=== PATIENT | female | born 1955 | race Two or more races ===

== ENCOUNTER 2022-07-04 08:52 | Inpatient (IN) | payer MEDICARE, MEDICAID ==
[~2022-07-04] VITALS: Ht 170.2 cm; Wt 59.2 kg
[2022-07-04] MEDS ORDERED: CLOP75TA70 PO (09:55)
[2022-07-04] MEDS ORDERED: ALEN70TA74 PO (09:55)
[2022-07-04] MEDS ORDERED: DIVA500T13 PO (09:57)
[2022-07-04] MEDS ORDERED: OLAN2.5T38 PO (09:57)
[2022-07-04 10:23] LABS: Albumin 3.2 g/dL (3.4-5.0); Calcium 8.5 mg/dL (8.5-10.1)
[2022-07-04 10:27] LABS: BUN/Creatinine Ratio 25.3; Basophils # (auto) 0 10 ^3/uL (0-0.2); Basophils % (auto) 0.5 % (0.0-2.0); Bilirubin, Total 0.3 mg/dL (0.2-1.0); Eosinophils # (auto) 0 10 ^3/uL (0-0.8); Eosinophils % (auto) 0.4 % (0.0-7.0); Hematocrit 38.3 % (36.0-46.0); Hemoglobin 12.3 g/dL (12.2-16.2); Lymphocytes # (auto) 0.9 10 ^3/uL (0.4-5.4); Lymphocytes % (auto) 18.4 % (10.0-50.0); Mean Corpuscular Hgb Conc. 32.2 g/dL (32.0-36.0); Mean Corpuscular Volume 93.2 fL (80.0-100.0); Monocytes # (auto) 0.4 10 ^3/uL (0-1.3); Monocytes % (auto) 7.7 % (0.0-12.0); Neutrophils # (auto) 3.7 10 ^3/uL (1.6-8.6); Nucleated Red Blood Cells % 0.1 %; Red Blood Cells 4.11 10^6/uL (4.0-5.20); Red Cell Distribution Width 14.8 % (11.8-14.3); Total Protein 5.9 g/dL (6.4-8.2); White Blood Cell 5.1 10^3/uL (4.4-10.8)
[2022-07-04] MEDS ORDERED: CHOL20002 PO (11:57)
[2022-07-04] MEDS ORDERED: TRAZ100T3 PO (11:57)
[2022-07-04] MEDS ORDERED: ASPI-325 PO (11:57)
[2022-07-04] MEDS ORDERED: ONDANSETRON HCL 4 MG/2 ML VIAL IV PRN (12:15)
[2022-07-04] MEDS ORDERED: TEMAZEPAM 15 MG CAP PO PRN (12:15)
[2022-07-04] MEDS ORDERED: MORPHINE SULFATE INJ 2 MG/ml SYRG IV PRN ×2 (12:15)
[2022-07-04] MEDS ORDERED: NITROGLYCERIN 0.4 MG SL TAB SL PRN (12:15)
[2022-07-04] MEDS ORDERED: DOCUSATE SOD 100 MG CAP PO PRN (12:15)
[2022-07-04] MEDS ORDERED: HYDROcodone-ACET 5/325MG TAB PO PRN (12:15)
[2022-07-04] MEDS ORDERED: ATROPINE SULF 1 MG/10ml SYR IV ONE (16:15)
[2022-07-04] MEDS ORDERED: ATROPINE SULFATE 1 MG/1 ML VIAL ONE (16:26)
[2022-07-05 05:33] LABS: Basophils # (auto) 0 10 ^3/uL (0-0.2); Basophils % (auto) 0.7 % (0.0-2.0); Eosinophils # (auto) 0 10 ^3/uL (0-0.8); Eosinophils % (auto) 0.6 % (0.0-7.0); Hematocrit 38.6 % (36.0-46.0); Hemoglobin 12.8 g/dL (12.2-16.2); Lymphocytes # (auto) 2.1 10 ^3/uL (0.4-5.4); Mean Corpuscular Hemoglobin 30.7 pg (28.0-32.0); Mean Corpuscular Hgb Conc. 33.2 g/dL (32.0-36.0); Mean Corpuscular Volume 92.6 fL (80.0-100.0); Monocytes # (auto) 0.4 10 ^3/uL (0-1.3); Monocytes % (auto) 8.3 % (0.0-12.0); Neutrophils # (auto) 2.8 10 ^3/uL (1.6-8.6); Neutrophils % (auto) 52.4 % (37.0-80.0); Nucleated Red Blood Cells % 0.1 %; Red Blood Cells 4.17 10^6/uL (4.0-5.20); Red Cell Distribution Width 14.7 % (11.8-14.3); White Blood Cell 5.4 10^3/uL (4.4-10.8)
[2022-07-05 05:46] LABS: Calcium 8.6 mg/dL (8.5-10.1); Magnesium 2.3 mg/dL (1.6-2.6); Potassium 4.4 mmol/L (3.5-5.1)
[2022-07-05 05:51] LABS: BUN/Creatinine Ratio 27.4; Bilirubin, Total 0.3 mg/dL (0.2-1.0); Total Protein 6.2 g/dL (6.4-8.2)
[2022-07-05] MEDS ORDERED: hydrALAZINE HCL 20 MG/ML VL IV PRN (06:15)
[2022-07-05] MEDS: ADENOSINE 46 MG in GIVE UN-DILUTED 0 ML IV STA ×2 (11:35→12:49)
[2022-07-05 13:00] VITALS: BP 155/70
[2022-07-05] MEDS ORDERED: FUROSEMIDE 20 MG/2 ML VIAL IV ONE (13:15)
[2022-07-05] MEDS ORDERED: LOSARTAN POTASSIUM 50 MG TAB PO ONE (13:15)
[2022-07-05] MEDS ORDERED: HCTZ 25 MG TAB PO ONE (13:15)
[2022-07-05 15:43] LABS: Urine Bacteria NONE SEEN /hpf (None Seen); Urine Blood Negative /uL (Negative); Urine Hyaline Cast FEW /lpf (0 - 2); Urine Specific Gravity 1.006 (1.001-1.035); Urine WBC 8 /hpf (0 - 5)
[2022-07-05 17:00] VITALS: BP 149/64
[2022-07-05] MEDS ORDERED: LORazepam 2MG/ML-1ML VIAL IV PRN (21:30)
[2022-07-05 21:39] LABS: Cholesterol 155 mg/dL (< 200); Triglycerides 69 mg/dL (< 150)
[2022-07-05 21:41] LABS: HDL Cholesterol 64 mg/dL (40-59); LDL Cholesterol 85 mg/dL (< 100)
[2022-07-05 22:00] VITALS: BP 121/58
[2022-07-05] MEDS: traZODone HCL 50 MG TAB PO SCH (22:18)
[2022-07-06 05:00] VITALS: BP 142/65
[2022-07-06] MEDS: FUROSEMIDE 20 MG/2 ML VIAL IV SCH (09:07)
[2022-07-06] MEDS: OLANZapine 5 MG TAB PO SCH (09:09)
[2022-07-06] MEDS: ASPirin 81 mg TAB PO SCH (09:11)
[2022-07-06] MEDS: HCTZ 25 MG TAB PO SCH (09:11)
[2022-07-06] MEDS: LOSARTAN POTASSIUM 50 MG TAB PO SCH (09:12)
[2022-07-06 13:00] VITALS: BP 123/75
[2022-07-06 17:00] VITALS: BP 114/61
[2022-07-06] MEDS: traZODone HCL 50 MG TAB PO SCH (21:27)
[2022-07-06 22:00] VITALS: BP 100/49
[2022-07-07 05:00] VITALS: BP 104/59
[2022-07-07 09:00] VITALS: BP 134/62
[2022-07-07] MEDS: OLANZapine 5 MG TAB PO SCH (09:26)
[2022-07-07] MEDS: ASPirin 81 mg TAB PO SCH (09:26)
[2022-07-07] MEDS: HCTZ 25 MG TAB PO SCH (09:27)
[2022-07-07] MEDS: LOSARTAN POTASSIUM 50 MG TAB PO SCH (09:28)
[2022-07-07] MEDS: FUROSEMIDE 20 MG/2 ML VIAL IV SCH (10:00)
[2022-07-07] MEDS ORDERED: LOSA-69 PO (10:52)
[2022-07-07] MEDS ORDERED: HYDR25TA5 PO (10:52)
[2022-07-07] MEDS ORDERED: ATOR20TA PO (10:53)
[2022-07-07 12:43] VITALS: BP 134/62
[2022-07-07 13:00] VITALS: BP 132/67
== END 2022-07-07 15:34 | disposition home or self-care (01) | DRG 201 ==
LOC: ER 08:52 → EDBD 08:52 → TELE 12:18 → TELE-CENTR 07-05 13:40
PROVIDERS: ADMIT Internal Medicine; ATTEND Internal Medicine Nephrology
DX: R00.1 Bradycardia, unspecified (principal); I11.0 Hypertensive heart disease with heart failure; I95.9 Hypotension, unspecified; I50.22 Chronic systolic (congestive) heart failure; F20.9 Schizophrenia, unspecified; F31.9 Bipolar disorder, unspecified; F41.0 Panic disorder [episodic paroxysmal anxiety]; Z20.822 Contact with and (suspected) exposure to COVID-19; Z86.73 Personal history of transient ischemic attack (TIA), and cerebral infarction without residual deficits; Z79.02 Long term (current) use of antithrombotics/antiplatelets; Z79.82 Long term (current) use of aspirin; Z79.899 Other long term (current) drug therapy; Z82.49 Family history of ischemic heart disease and other diseases of the circulatory system; Z83.3 Family history of diabetes mellitus
CPT/HCPCS: 36415; 70551; 71045; 76705; 78452; 80053; 80061; 81001; 82962; 83036; 83735; 83880; 84439; 84443; 84484; 85025; 93005; 93017; 93306; 95819; G0378; J0153; J0461

== ENCOUNTER 2023-04-23 06:47 | Inpatient (IN) | payer MEDICARE, MEDICAID ==
[~2023-04-23] VITALS: Ht 170.2 cm; Wt 70.0 kg
[~2023-04-23 06:47] MED LIST: ALEN70TA74 PO; ASPI-325 PO; ATOR20TA PO; CHOL20002 PO; CLOP75TA70 PO; DIVA500T13 PO; HYDR25TA5 PO; LOSA50TA46 PO; OLAN2.5T38 PO; TRAZ-228 PO
[2023-04-23 07:32] LABS: Basophils # (auto) 0.1 10 ^3/uL (0-0.2); Basophils % (auto) 0.9 % (0.0-2.0); Eosinophils # (auto) 0 10 ^3/uL (0-0.8); Eosinophils % (auto) 0.2 % (0.0-7.0); Hematocrit 45.6 % (36.0-46.0); Hemoglobin 15.1 g/dL (12.2-16.2); Lymphocytes # (auto) 1.4 10 ^3/uL (0.4-5.4); Lymphocytes % (auto) 24.3 % (10.0-50.0); Mean Corpuscular Hemoglobin 31.1 pg (28.0-32.0); Mean Corpuscular Hgb Conc. 33.1 g/dL (32.0-36.0); Mean Corpuscular Volume 94.1 fL (80.0-100.0); Monocytes # (auto) 0.4 10 ^3/uL (0-1.3); Monocytes % (auto) 6.7 % (0.0-12.0); Neutrophils % (auto) 67.9 % (37.0-80.0); Nucleated Red Blood Cells % 0.1 %; Red Blood Cells 4.84 10^6/uL (4.0-5.20); Red Cell Distribution Width 14.3 % (11.8-14.3); White Blood Cell 5.8 10^3/uL (4.4-10.8)
[2023-04-23 07:47] LABS: INR 1.08 (0.9-1.15); Partial Thromboplastin Time 24.5 sec (24.6-33.4)
[2023-04-23 08:08] LABS: Albumin 2.9 g/dL (3.4-5.0); Anion Gap 8 (5-15); BUN/Creatinine Ratio 22.8 (10.0-20.0); Blood Urea Nitrogen 23 mg/dL (7-18); Calcium 8.6 mg/dL (8.5-10.1); Carbon Dioxide 26 mmol/L (21-32); Chloride 111 mmol/L (98-107); GFR African American 71 mL/min; GFR Non-African American 58 mL/min; Glucose 104 mg/dL (74-106); Potassium 3.4 mmol/L (3.5-5.1); Sodium 145 mmol/L (136-145)
[2023-04-23 08:10] LABS: Alanine Aminotransferase 94 U/L (13-56); Alkaline Phosphatase 54 U/L (45-117); Aspartate Aminotransferase 63 U/L (15-37); Bilirubin, Total 0.6 mg/dL (0.2-1.0); Total Protein 5.6 g/dL (6.4-8.2)
[2023-04-23 08:29] LABS: Urine Bacteria NONE SEEN /hpf (None Seen); Urine Blood Negative /uL (Negative); Urine Hyaline Cast FEW /lpf (0 - 2); Urine Specific Gravity 1.011 (1.001-1.035); Urine WBC <1 /hpf (0 - 5)
[2023-04-23] MEDS ORDERED: ENOXAPARIN SOD 80 MG/0.8ML SYRINGE SC ONE (08:45)
[2023-04-23] MEDS ORDERED: FUROSEMIDE 40 MG/4 ML VIAL IV ONE (09:30)
[2023-04-23] MEDS ORDERED: MORPHINE SULFATE INJ 2 MG/ml SYRG IV PRN (14:00)
[2023-04-23] MEDS ORDERED: NITROGLYCERIN 0.4 MG SL TAB SL PRN (14:00)
[2023-04-23] MEDS ORDERED: POTASSIUM EFFERVESENT TAB 25 MEQ PO ONE (14:00)
[2023-04-23] MEDS ORDERED: ALENDRONATE SODIUM 10 MG TAB PO SCH (14:00)
[2023-04-23] MEDS ORDERED: ACETAMINOPHEN 325 MG TAB PO PRN (14:00)
[2023-04-23] MEDS ORDERED: hydrALAZINE HCL 20 MG/ML VL IV PRN (14:00)
[2023-04-23] MEDS ORDERED: ALBUTEROL SULF 2.5 MG/0.5ML(0.5%) NEB SOLN NEB PRN (14:15)
[2023-04-23 17:51] VITALS: BP 136/47
[2023-04-23 18:00] VITALS: BP 136/47
[2023-04-23] MEDS ORDERED: METO25TA93 PO (18:20)
[2023-04-23] MEDS ORDERED: FUR20T PO (18:20)
[2023-04-23] MEDS ORDERED: FLUO20CA90 PO (18:20)
[2023-04-23] MEDS: FUROSEMIDE 40 MG/4 ML VIAL IV SCH (22:00)
[2023-04-24] VITALS (8 sets, daily range): BP systolic 114–144; BP diastolic 63–97
[2023-04-24 06:49] LABS: Basophils # (auto) 0 10 ^3/uL (0-0.2); Basophils % (auto) 0.6 % (0.0-2.0); Eosinophils # (auto) 0 10 ^3/uL (0-0.8); Eosinophils % (auto) 0.1 % (0.0-7.0); Hematocrit 44.9 % (36.0-46.0); Hemoglobin 15.1 g/dL (12.2-16.2); Lymphocytes # (auto) 1.4 10 ^3/uL (0.4-5.4); Lymphocytes % (auto) 22.7 % (10.0-50.0); Mean Corpuscular Hemoglobin 31.3 pg (28.0-32.0); Mean Corpuscular Hgb Conc. 33.7 g/dL (32.0-36.0); Mean Corpuscular Volume 92.7 fL (80.0-100.0); Monocytes # (auto) 0.5 10 ^3/uL (0-1.3); Monocytes % (auto) 8.5 % (0.0-12.0); Neutrophils # (auto) 4.1 10 ^3/uL (1.6-8.6); Neutrophils % (auto) 68.1 % (37.0-80.0); Nucleated Red Blood Cells % 0.2 %; Red Blood Cells 4.84 10^6/uL (4.0-5.20); Red Cell Distribution Width 14.2 % (11.8-14.3)
[2023-04-24 07:05] LABS: Albumin 2.8 g/dL (3.4-5.0); Calcium 8.4 mg/dL (8.5-10.1); Potassium 3.2 mmol/L (3.5-5.1)
[2023-04-24 07:09] LABS: Bilirubin, Total 0.7 mg/dL (0.2-1.0); Total Protein 5.5 g/dL (6.4-8.2)
[2023-04-24] MEDS: CLOPIDOGREL BISULFATE 75 MG TAB PO SCH (09:36)
[2023-04-24] MEDS: CHOLECALCIFEROL (VITD3) 2,000 UNIT CAP/TAB PO SCH (09:36)
[2023-04-24] MEDS: ENOXAPARIN SOD 40 MG/0.4 ML SYRINGE SC SCH (09:37)
[2023-04-24] MEDS: ATORVASTATIN 20 MG TAB PO SCH (09:37)
[2023-04-24] MEDS: ASPirin 81 mg TAB PO SCH (09:37)
[2023-04-24] MEDS: FUROSEMIDE 40 MG/4 ML VIAL IV SCH ×2 (09:38→21:56)
[2023-04-24] MEDS: LOSARTAN POTASSIUM 50 MG TAB PO SCH (09:39)
[2023-04-24] MEDS ORDERED: OLANZapine 5 MG TAB PO SCH (10:00)
[2023-04-24] MEDS ORDERED: POTASSIUM CHL 20 Meq TABLET PO ONE (11:15)
[2023-04-24 13:33] LABS: Hepatitis A Ab IgM Negative; Hepatitis B Core IgM Negative
[2023-04-24 13:36] LABS: Hepatitis C Antibody Negative (Negative)
[2023-04-24] MEDS: POTASSIUM CHL 20 Meq TABLET PO SCH (21:57)
[2023-04-24] MEDS ORDERED: traZODone HCL 50 MG TAB PO SCH (22:00)
[2023-04-25 05:00] VITALS: BP 136/92
[2023-04-25 06:35] LABS: BUN/Creatinine Ratio 22.6 (10.0-20.0); Calcium 8.5 mg/dL (8.5-10.1); Potassium 3.7 mmol/L (3.5-5.1)
[2023-04-25 09:00] VITALS: BP 133/84
[2023-04-25] MEDS: ENOXAPARIN SOD 40 MG/0.4 ML SYRINGE SC SCH (09:09)
[2023-04-25] MEDS: OLANZapine 5 MG TAB PO SCH (09:10)
[2023-04-25] MEDS: CHOLECALCIFEROL (VITD3) 2,000 UNIT CAP/TAB PO SCH (09:11)
[2023-04-25] MEDS: POTASSIUM CHL 20 Meq TABLET PO SCH (09:11)
[2023-04-25] MEDS: ASPirin 81 mg TAB PO SCH (09:11)
[2023-04-25] MEDS: CLOPIDOGREL BISULFATE 75 MG TAB PO SCH (09:11)
[2023-04-25] MEDS: ATORVASTATIN 20 MG TAB PO SCH (09:11)
[2023-04-25] MEDS: LOSARTAN POTASSIUM 50 MG TAB PO SCH (09:12)
[2023-04-25] MEDS: FLUoxetine HCL 20 MG CAP PO SCH (09:12)
[2023-04-25] MEDS: FUROSEMIDE 40 MG/4 ML VIAL IV SCH (09:13)
[2023-04-25 09:50] VITALS: BP 133/84
[2023-04-25 13:00] VITALS: BP 102/61
[2023-04-25 16:39] VITALS: BP 90/59
[2023-04-25 22:00] VITALS: BP 122/55
[2023-04-26] VITALS (9 sets, daily range): BP systolic 112–143; BP diastolic 63–99
[2023-04-26 06:03] LABS: Basophils # (auto) 0 10 ^3/uL (0-0.2); Basophils % (auto) 0.5 % (0.0-2.0); Eosinophils # (auto) 0 10 ^3/uL (0-0.8); Eosinophils % (auto) 0.5 % (0.0-7.0); Hematocrit 43.2 % (36.0-46.0); Hemoglobin 14.6 g/dL (12.2-16.2); Lymphocytes # (auto) 1.6 10 ^3/uL (0.4-5.4); Lymphocytes % (auto) 30.5 % (10.0-50.0); Mean Corpuscular Hemoglobin 31.3 pg (28.0-32.0); Mean Corpuscular Hgb Conc. 33.7 g/dL (32.0-36.0); Mean Corpuscular Volume 92.9 fL (80.0-100.0); Monocytes # (auto) 0.6 10 ^3/uL (0-1.3); Monocytes % (auto) 11.6 % (0.0-12.0); Neutrophils # (auto) 2.9 10 ^3/uL (1.6-8.6); Neutrophils % (auto) 56.9 % (37.0-80.0); Nucleated Red Blood Cells % 0.2 %; Red Blood Cells 4.65 10^6/uL (4.0-5.20); White Blood Cell 5.1 10^3/uL (4.4-10.8)
[2023-04-26 06:23] LABS: Albumin 2.3 g/dL (3.4-5.0); Calcium 8.2 mg/dL (8.5-10.1); Potassium 3.7 mmol/L (3.5-5.1)
[2023-04-26 06:26] LABS: Bilirubin, Total 0.4 mg/dL (0.2-1.0); Total Protein 5.3 g/dL (6.4-8.2)
[2023-04-26] MEDS: ENOXAPARIN SOD 40 MG/0.4 ML SYRINGE SC SCH (10:00)
[2023-04-26] MEDS: FUROSEMIDE 40 MG/4 ML VIAL IV SCH (10:00)
[2023-04-26] MEDS: POTASSIUM CHL 20 Meq TABLET PO SCH (10:57)
[2023-04-26] MEDS: CLOPIDOGREL BISULFATE 75 MG TAB PO SCH (10:58)
[2023-04-26] MEDS: ATORVASTATIN 20 MG TAB PO SCH (10:58)
[2023-04-26] MEDS: ASPirin 81 mg TAB PO SCH (10:58)
[2023-04-26] MEDS: FLUoxetine HCL 20 MG CAP PO SCH (10:58)
[2023-04-26] MEDS: LOSARTAN POTASSIUM 50 MG TAB PO SCH (10:59)
[2023-04-26] MEDS: OLANZapine 5 MG TAB PO SCH (11:00)
[2023-04-26] MEDS: CHOLECALCIFEROL (VITD3) 2,000 UNIT CAP/TAB PO SCH (11:07)
[2023-04-26] MEDS ORDERED: LIDOCAINE 2%HCL (LOCAL ANESTH.) INJ 20ML MDV ONE (15:31)
[2023-04-26] MEDS ORDERED: ANGIOMAX 250 MG VIAL IV ONE (15:34)
[2023-04-26] MEDS ORDERED: fentaNYL CITRATE 100 MCG/2 ML VL ONE (15:34)
[2023-04-26] MEDS ORDERED: VERAPAMIL 2.5MG/ML INJ 2ML VIAL IV ONE (15:34)
[2023-04-26] MEDS ORDERED: MIDAZOLAM HCL 2MG/2ML 2ml VIAL (1mg/ml) ONE (15:35)
[2023-04-26] MEDS ORDERED: SODIUM CHL 0.9% 0 ML ONE (15:35)
[2023-04-26] MEDS ORDERED: HEPARIN SODIUM (PORCINE) 5000 UNITS/ML 1ML VIAL ONE (15:53)
[2023-04-26] MEDS: CARVEDILOL 3.125 MG TAB PO SCH (21:59)
[2023-04-27 05:00] VITALS: BP 154/102
[2023-04-27 06:32] LABS: Basophils # (auto) 0 10 ^3/uL (0-0.2); Basophils % (auto) 0.5 % (0.0-2.0); Eosinophils # (auto) 0 10 ^3/uL (0-0.8); Hematocrit 42.8 % (36.0-46.0); Hemoglobin 14.3 g/dL (12.2-16.2); Lymphocytes # (auto) 1.3 10 ^3/uL (0.4-5.4); Lymphocytes % (auto) 30.3 % (10.0-50.0); Mean Corpuscular Hemoglobin 31.3 pg (28.0-32.0); Mean Corpuscular Hgb Conc. 33.5 g/dL (32.0-36.0); Mean Corpuscular Volume 93.6 fL (80.0-100.0); Monocytes # (auto) 0.6 10 ^3/uL (0-1.3); Monocytes % (auto) 12.6 % (0.0-12.0); Neutrophils # (auto) 2.4 10 ^3/uL (1.6-8.6); Neutrophils % (auto) 55.6 % (37.0-80.0); Nucleated Red Blood Cells % 0.1 %; Red Blood Cells 4.58 10^6/uL (4.0-5.20); Red Cell Distribution Width 14.3 % (11.8-14.3); White Blood Cell 4.4 10^3/uL (4.4-10.8)
[2023-04-27 06:39] LABS: BUN/Creatinine Ratio 26.3 (10.0-20.0); Calcium 8.2 mg/dL (8.5-10.1); Potassium 4.6 mmol/L (3.5-5.1)
[2023-04-27 09:00] VITALS: BP 129/95
[2023-04-27] MEDS: ATORVASTATIN 20 MG TAB PO SCH (09:44)
[2023-04-27] MEDS: ENOXAPARIN SOD 40 MG/0.4 ML SYRINGE SC SCH (09:44)
[2023-04-27] MEDS: FUROSEMIDE 40 MG/4 ML VIAL IV SCH (09:44)
[2023-04-27] MEDS: FLUoxetine HCL 20 MG CAP PO SCH (09:45)
[2023-04-27] MEDS: LOSARTAN POTASSIUM 50 MG TAB PO SCH (09:45)
[2023-04-27] MEDS: ASPirin 81 mg TAB PO SCH (09:45)
[2023-04-27] MEDS: CHOLECALCIFEROL (VITD3) 2,000 UNIT CAP/TAB PO SCH (09:46)
[2023-04-27] MEDS: CARVEDILOL 3.125 MG TAB PO SCH (09:46)
[2023-04-27] MEDS: POTASSIUM CHL 20 Meq TABLET PO SCH (09:46)
[2023-04-27] MEDS: OLANZapine 5 MG TAB PO SCH (09:47)
[2023-04-27] MEDS ORDERED: LOSA50TA46 PO (12:48)
[2023-04-27 13:00] VITALS: BP 124/89
[2023-04-27 14:44] VITALS: BP 123/74
[2023-04-27 16:21] VITALS: BP 113/73
== END 2023-04-27 16:11 | disposition home or self-care (01) | DRG 280 ==
LOC: ER 06:47 → TELE 13:59 → TELE-WESTW 17:46
PROVIDERS: ADMIT Nurse Practitioner Family; ATTEND Internal Medicine
PROC: 4A023N7 Measurement of Cardiac Sampling and Pressure, Left Heart, Percutaneous Approach (ICD-10-PCS; principal; 2023-04-26)
PROC: B2111ZZ Fluoroscopy of Multiple Coronary Arteries using Low Osmolar Contrast (ICD-10-PCS; 2023-04-26)
PROC: B2151ZZ Fluoroscopy of Left Heart using Low Osmolar Contrast (ICD-10-PCS; 2023-04-26)
DX: I11.0 Hypertensive heart disease with heart failure (principal); I21.A1 Myocardial infarction type 2; I50.23 Acute on chronic systolic (congestive) heart failure; J96.01 Acute respiratory failure with hypoxia; E46 Unspecified protein-calorie malnutrition; E87.6 Hypokalemia; I48.91 Unspecified atrial fibrillation; I42.0 Dilated cardiomyopathy; F20.9 Schizophrenia, unspecified; R74.01 Elevation of levels of liver transaminase levels; I49.3 Ventricular premature depolarization; F31.9 Bipolar disorder, unspecified; I25.10 Atherosclerotic heart disease of native coronary artery without angina pectoris; Z79.899 Other long term (current) drug therapy; Z86.73 Personal history of transient ischemic attack (TIA), and cerebral infarction without residual deficits; Z90.710 Acquired absence of both cervix and uterus; Z68.24 Body mass index [BMI] 24.0-24.9, adult
CPT/HCPCS: 36415; 71045; 76937; 80048; 80053; 80061; 80074; 81001; 83735; 83880; 84132; 84443; 84484; 85025; 85379; 85610; 85730; 86850; 86900; 86901; 93005; 93306; 93458; 96372; 96374; 99152; 99291; G0378; J2250

== ENCOUNTER 2023-08-24 09:42 | Inpatient (IN) | payer MEDICARE, MEDICAID ==
[~2023-08-24] VITALS: Ht 172.7 cm; Wt 55.0 kg
[~2023-08-24 09:42] MED LIST changes: -ASPI-325 PO; -ATOR20TA PO; -CHOL20002 PO; +FLUO20CA90 PO; +FUR20T PO; +METO25TA93 PO
[2023-08-24] MEDS ORDERED: SODIUM CHLORIDE 0.9% 1,000 ML IV ONE (10:15)
[2023-08-24 10:39] LABS: Basophils # (auto) 0 10 ^3/uL (0-0.2); Basophils % (auto) 0.8 % (0.0-2.0); Eosinophils # (auto) 0 10 ^3/uL (0-0.8); Eosinophils % (auto) 0.1 % (0.0-7.0); Hematocrit 40.3 % (36.0-46.0); Hemoglobin 13.6 g/dL (12.2-16.2); Lymphocytes # (auto) 1.3 10 ^3/uL (0.4-5.4); Lymphocytes % (auto) 26.3 % (10.0-50.0); Mean Corpuscular Hemoglobin 31.9 pg (28.0-32.0); Mean Corpuscular Hgb Conc. 33.7 g/dL (32.0-36.0); Mean Corpuscular Volume 94.6 fL (80.0-100.0); Monocytes # (auto) 0.4 10 ^3/uL (0-1.3); Monocytes % (auto) 9.1 % (0.0-12.0); Neutrophils # (auto) 3.1 10 ^3/uL (1.6-8.6); Neutrophils % (auto) 63.7 % (37.0-80.0); Red Blood Cells 4.26 10^6/uL (4.0-5.20); Red Cell Distribution Width 15.3 % (11.8-14.3); White Blood Cell 4.9 10^3/uL (4.4-10.8)
[2023-08-24 10:49] VITALS: PULSE 64; RESP 17; O2SAT 98
[2023-08-24 11:04] LABS: Alanine Aminotransferase 69 U/L (7-40); Albumin 3.9 g/dL (3.2-4.8); Alkaline Phosphatase 80 U/L (46-116); Anion Gap 7 (5-15); Aspartate Aminotransferase 40 U/L (13-40); BUN/Creatinine Ratio 23.6 (10.0-20.0); Blood Urea Nitrogen 21 mg/dL (9-23); Calcium 9.1 mg/dL (8.7-10.4); Carbon Dioxide 25 mmol/L (20-30); Chloride 110 mmol/L (98-107); Glucose 92 mg/dL (74-106); Potassium 3.6 mmol/L (3.5-5.1); Sodium 142 mmol/L (136-145)
[2023-08-24 11:05] LABS: Bilirubin, Total 0.7 mg/dL (0.2-1.0); Total Protein 6.2 g/dL (5.7-8.2)
[2023-08-24 13:26] LABS: Urine Bacteria NONE SEEN /hpf (None Seen); Urine Blood Negative /uL (Negative); Urine Clarity Clear (Clear); Urine Protein, UAD Negative (Negative); Urine Specific Gravity 1.013 (1.001-1.035); Urine Urobilinogen Normal (Negative); Urine WBC <1 /hpf (0 - 5)
[2023-08-24 13:29] LABS: Urine Color Straw (Yellow)
[2023-08-24] MEDS ORDERED: NITROGLYCERIN 0.4 MG SL TAB SL PRN (14:30)
[2023-08-24] MEDS ORDERED: ASPirin 81 mg TAB PO ONE (14:30)
[2023-08-24] MEDS ORDERED: MORPHINE SULFATE INJ 2 MG/ml SYRG IV PRN (14:30)
[2023-08-24] MEDS ORDERED: POTASSIUM EFFERVESENT TAB 25 MEQ PO ONE (17:00)
[2023-08-24] MEDS ORDERED: DOBUTamine 1000MCG/ML 250 ML IV SCH (17:30)
[2023-08-24] MEDS ORDERED: MAGNESIUM SULFATE 1GM/100ML 100 ML IV ONE (17:45)
[2023-08-24] MEDS: FUROSEMIDE 20 MG/2 ML VIAL IV SCH (18:40)
[2023-08-24 18:59] VITALS: BP 140/101; TEMP 97.5
[2023-08-24 20:00] VITALS: PULSE 71
[2023-08-24 22:00] VITALS: BP 131/80; PULSE 41; RESP 18; TEMP 98.3; O2SAT 99
[2023-08-24] MEDS: ATORVASTATIN 20 MG TAB PO SCH (23:11)
[2023-08-24] MEDS: METOPROLOL TARTRATE 25 MG TAB PO SCH (23:11)
[2023-08-25] VITALS (8 sets, daily range): BP systolic 117–138; BP diastolic 48–92; PULSE 58–76; RESP 14–21; TEMP 36.9; O2SAT 93–99
[2023-08-25 05:49] LABS: Basophils # (auto) 0 10 ^3/uL (0-0.2); Basophils % (auto) 0.6 % (0.0-2.0); Eosinophils # (auto) 0 10 ^3/uL (0-0.8); Eosinophils % (auto) 0.3 % (0.0-7.0); Hematocrit 40.9 % (36.0-46.0); Hemoglobin 13.7 g/dL (12.2-16.2); Lymphocytes # (auto) 1.8 10 ^3/uL (0.4-5.4); Lymphocytes % (auto) 34.4 % (10.0-50.0); Mean Corpuscular Hemoglobin 31.8 pg (28.0-32.0); Mean Corpuscular Hgb Conc. 33.6 g/dL (32.0-36.0); Mean Corpuscular Volume 94.7 fL (80.0-100.0); Monocytes # (auto) 0.4 10 ^3/uL (0-1.3); Monocytes % (auto) 8.6 % (0.0-12.0); Neutrophils # (auto) 2.9 10 ^3/uL (1.6-8.6); Neutrophils % (auto) 56.1 % (37.0-80.0); Nucleated Red Blood Cells % 0.1 %; Red Blood Cells 4.32 10^6/uL (4.0-5.20); Red Cell Distribution Width 15.5 % (11.8-14.3); White Blood Cell 5.2 10^3/uL (4.4-10.8)
[2023-08-25 06:11] LABS: Alanine Aminotransferase 64 U/L (7-40); Albumin 3.7 g/dL (3.2-4.8); Alkaline Phosphatase 69 U/L (46-116); Anion Gap 5 (5-15); Aspartate Aminotransferase 40 U/L (13-40); BUN/Creatinine Ratio 28.4 (10.0-20.0); Blood Urea Nitrogen 29 mg/dL (9-23); Calcium 9.1 mg/dL (8.5-10.1); Carbon Dioxide 25 mmol/L (20-30); Chloride 108 mmol/L (98-107); Cholesterol 136 mg/dL (< 200); Glucose 85 mg/dL (74-106); LDL Cholesterol 74 mg/dL (< 100); Sodium 138 mmol/L (136-145); Triglycerides 56 mg/dL (< 150)
[2023-08-25 06:12] LABS: Bilirubin, Total 0.7 mg/dL (0.2-1.0); HDL Cholesterol 44 mg/dL (40-59); Total Protein 5.9 g/dL (5.7-8.2)
[2023-08-25 06:23] LABS: INR 1.12 (0.9-1.15); Prothrombin Time 11.7 sec (9.3-11.8)
[2023-08-25] MEDS: FUROSEMIDE 20 MG/2 ML VIAL IV SCH (06:50)
[2023-08-25] MEDS: FLUoxetine HCL 20 MG CAP PO SCH (09:00)
[2023-08-25] MEDS: METOPROLOL TARTRATE 25 MG TAB PO SCH ×2 (09:05→22:52)
[2023-08-25] MEDS ORDERED: LOSARTAN POTASSIUM 50 MG TAB PO SCH (10:00)
[2023-08-25] MEDS ORDERED: FUROSEMIDE 20 MG/2 ML VIAL IV SCH (15:30)
[2023-08-25] MEDS ORDERED: FUROSEMIDE 20 MG TAB PO SCH (22:00)
[2023-08-25] MEDS: ATORVASTATIN 20 MG TAB PO SCH (22:51)
[2023-08-25] MEDS: SACUBITRIL-VALSARTAN 24mg/26mg TAB PO SCH (23:00)
[2023-08-26 05:00] VITALS: BP 138/57; PULSE 94; RESP 14; TEMP 98.3; O2SAT 98
[2023-08-26] MEDS ORDERED: EMPAGLIFLOZIN 10 MG TAB PO SCH (07:00)
[2023-08-26 08:00] VITALS: PULSE 58
[2023-08-26 08:46] VITALS: BP 123/80; PULSE 90; RESP 17; TEMP 97.6; O2SAT 94
[2023-08-26] MEDS: FLUoxetine HCL 20 MG CAP PO SCH (09:33)
[2023-08-26] MEDS: METOPROLOL TARTRATE 25 MG TAB PO SCH (09:34)
[2023-08-26] MEDS: SACUBITRIL-VALSARTAN 24mg/26mg TAB PO SCH (09:34)
[2023-08-26] MEDS ORDERED: FUROSEMIDE 20 MG TAB PO SCH ×2 (10:00)
[2023-08-26] MEDS ORDERED: ATOR20TA50 PO (10:51)
[2023-08-26] MEDS ORDERED: EMPA1TAB PO (10:51)
[2023-08-26] MEDS ORDERED: SACU1TAB PO (10:51)
[2023-08-26 12:46] VITALS: BP 123/80; PULSE 51; TEMP 36.4
[2023-08-26 12:49] VITALS: BP 113/77; PULSE 58; RESP 17; TEMP 97.9; O2SAT 99
== END 2023-08-26 14:42 | disposition home or self-care (01) | DRG 291 ==
LOC: ER 09:42 → EDBD 09:42 → TELE 14:34 → TELE-WESTW 18:16
PROVIDERS: ADMIT Internal Medicine; ATTEND Internal Medicine
DX: I11.0 Hypertensive heart disease with heart failure (principal); I50.23 Acute on chronic systolic (congestive) heart failure; R00.1 Bradycardia, unspecified; I48.91 Unspecified atrial fibrillation; M81.0 Age-related osteoporosis without current pathological fracture; E78.5 Hyperlipidemia, unspecified; F20.9 Schizophrenia, unspecified; R00.8 Other abnormalities of heart beat; R74.01 Elevation of levels of liver transaminase levels; F31.9 Bipolar disorder, unspecified; Z86.73 Personal history of transient ischemic attack (TIA), and cerebral infarction without residual deficits; Z90.710 Acquired absence of both cervix and uterus
CPT/HCPCS: 36415; 70551; 71045; 80053; 80061; 81001; 82607; 83735; 83880; 84443; 84484; 85025; 85610; 93005; 96361; 96365; G0378

== ENCOUNTER 2023-09-19 11:23 | Inpatient (IN) | payer MEDICARE, MEDICAID ==
[~2023-09-19] VITALS: Ht 162.6 cm; Wt 117.2 kg
[~2023-09-19 11:23] MED LIST changes: +ATOR20TA50 PO; +EMPA1TAB PO; +SACU1TAB PO
[2023-09-19 12:43] LABS: Basophils # (auto) 0 10 ^3/uL (0-0.2); Basophils % (auto) 0.5 % (0.0-2.0); Eosinophils # (auto) 0 10 ^3/uL (0-0.8); Eosinophils % (auto) 0.2 % (0.0-7.0); Hematocrit 43.6 % (36.0-46.0); Hemoglobin 14.4 g/dL (12.2-16.2); Lymphocytes # (auto) 1.4 10 ^3/uL (0.4-5.4); Lymphocytes % (auto) 25.5 % (10.0-50.0); Mean Corpuscular Hemoglobin 31.7 pg (28.0-32.0); Mean Corpuscular Hgb Conc. 32.9 g/dL (32.0-36.0); Mean Corpuscular Volume 96.2 fL (80.0-100.0); Monocytes # (auto) 0.4 10 ^3/uL (0-1.3); Monocytes % (auto) 7.5 % (0.0-12.0); Neutrophils # (auto) 3.6 10 ^3/uL (1.6-8.6); Neutrophils % (auto) 66.3 % (37.0-80.0); Nucleated Red Blood Cells % 0.2 %; Red Blood Cells 4.53 10^6/uL (4.0-5.20); Red Cell Distribution Width 13.7 % (11.8-14.3); White Blood Cell 5.4 10^3/uL (4.4-10.8)
[2023-09-19 13:02] LABS: Alanine Aminotransferase 42 U/L (7-40); Albumin 3.8 g/dL (3.2-4.8); Alkaline Phosphatase 49 U/L (46-116); Anion Gap 6 (5-15); Aspartate Aminotransferase 45 U/L (13-40); BUN/Creatinine Ratio 20.4 (10.0-20.0); Bilirubin, Total 0.6 mg/dL (0.2-1.0); Blood Urea Nitrogen 20 mg/dL (9-23); Calcium 9.2 mg/dL (8.5-10.1); Carbon Dioxide 28 mmol/L (20-30); Chloride 108 mmol/L (98-107); Glucose 78 mg/dL (74-106); Potassium 3.2 mmol/L (3.5-5.1); Sodium 142 mmol/L (136-145); Total Protein 6.3 g/dL (5.7-8.2)
[2023-09-19] MEDS ORDERED: SODIUM CHLORIDE 0.9% 1,000 ML IV ONE (14:00)
[2023-09-19] MEDS ORDERED: SODIUM CHLORIDE 0.9% 500 ML IVB ONE (14:00)
[2023-09-19] MEDS ORDERED: POTASSIUM EFFERVESENT TAB 25 MEQ PO ONE (15:30)
[2023-09-19 20:00] VITALS: PULSE 42; RESP 16; O2SAT 98
[2023-09-19 22:17] LABS: Urine Bacteria NONE SEEN /hpf (None Seen); Urine Blood Negative /uL (Negative); Urine Clarity Clear (Clear); Urine Color Yellow (Yellow); Urine Hyaline Cast FEW /lpf (0 - 2); Urine Mucus FEW (None Seen); Urine Protein, UAD Negative (Negative); Urine Specific Gravity 1.019 (1.001-1.035); Urine Urobilinogen Normal (Negative); Urine WBC 1 /hpf (0 - 5)
[2023-09-19 22:22] LABS: Amphetamine Screen, Urine Neg (NEGATIVE); Barbiturate Scree,Urine Neg (NEGATIVE); Benzodiazephine Screen, Urine Neg (NEGATIVE); Cannabinoid Screen, Urine Neg (NEGATIVE); Cocaine Screen, Urine Neg (NEGATIVE); Opiate Scree,Urine Neg (NEGATIVE); Phencyclidine Screen, Urine Neg (NEGATIVE)
[2023-09-20] VITALS (8 sets, daily range): BP systolic 106–147; BP diastolic 63–90; PULSE 71–77; RESP 16–19; TEMP 97.5–97.9; O2SAT 94–99
[2023-09-20] MEDS ORDERED: MORPHINE SULFATE INJ 2 MG/ml SYRG IV PRN (01:45)
[2023-09-20] MEDS ORDERED: NITROGLYCERIN 0.4 MG SL TAB SL PRN (01:45)
[2023-09-20] MEDS ORDERED: ACETAMINOPHEN 325 MG TAB PO PRN (01:45)
[2023-09-20] MEDS ORDERED: ONDANSETRON HCL 4 MG/2 ML VIAL IV PRN (01:45)
[2023-09-20] MEDS ORDERED: FUROSEMIDE 20 MG TAB PO SCH (10:00)
[2023-09-20] MEDS ORDERED: HCTZ 25 MG TAB PO SCH (10:00)
[2023-09-20 10:51] LABS: Basophils # (auto) 0 10 ^3/uL (0-0.2); Basophils % (auto) 0.6 % (0.0-2.0); Eosinophils # (auto) 0 10 ^3/uL (0-0.8); Eosinophils % (auto) 0.5 % (0.0-7.0); Hematocrit 44.5 % (36.0-46.0); Hemoglobin 14.6 g/dL (12.2-16.2); Lymphocytes # (auto) 1.1 10 ^3/uL (0.4-5.4); Lymphocytes % (auto) 25.2 % (10.0-50.0); Mean Corpuscular Hemoglobin 31.6 pg (28.0-32.0); Mean Corpuscular Hgb Conc. 32.8 g/dL (32.0-36.0); Mean Corpuscular Volume 96.3 fL (80.0-100.0); Monocytes # (auto) 0.4 10 ^3/uL (0-1.3); Monocytes % (auto) 8.4 % (0.0-12.0); Neutrophils # (auto) 2.7 10 ^3/uL (1.6-8.6); Neutrophils % (auto) 65.3 % (37.0-80.0); Nucleated Red Blood Cells % 0.1 %; Red Blood Cells 4.62 10^6/uL (4.0-5.20); White Blood Cell 4.2 10^3/uL (4.4-10.8)
[2023-09-20 10:59] LABS: Chloride 108 mmol/L (98-107); Potassium 3.9 mmol/L (3.5-5.1); Sodium 141 mmol/L (136-145)
[2023-09-20 11:00] LABS: Anion Gap 3 (5-15); Carbon Dioxide 30 mmol/L (20-30)
[2023-09-20 11:01] LABS: Calcium 9.2 mg/dL (8.5-10.1)
[2023-09-20 11:05] LABS: Glucose 91 mg/dL (74-106)
[2023-09-20 11:06] LABS: BUN/Creatinine Ratio 19.5 (10.0-20.0); Blood Urea Nitrogen 16 mg/dL (9-23)
[2023-09-20] MEDS: SACUBITRIL-VALSARTAN 24mg/26mg TAB PO SCH ×2 (12:03→22:19)
[2023-09-20] MEDS: CLOPIDOGREL BISULFATE 75 MG TAB PO SCH (12:04)
[2023-09-20] MEDS: ATORVASTATIN 20 MG TAB PO SCH (22:19)
[2023-09-21 05:00] VITALS: BP 113/66; PULSE 60; RESP 16; TEMP 97.8; O2SAT 99
[2023-09-21 05:36] LABS: Anion Gap 6 (5-15); Carbon Dioxide 25 mmol/L (20-30); Chloride 104 mmol/L (98-107); Potassium 3.5 mmol/L (3.5-5.1)
[2023-09-21 05:37] LABS: Calcium 8.8 mg/dL (8.5-10.1)
[2023-09-21 05:41] LABS: Glucose 70 mg/dL (74-106)
[2023-09-21 05:42] LABS: BUN/Creatinine Ratio 19.2 (10.0-20.0); Blood Urea Nitrogen 15 mg/dL (9-23)
[2023-09-21 05:45] LABS: Sodium 135 mmol/L (136-145)
[2023-09-21 08:00] VITALS: BP 113/69; PULSE 72; RESP 18; TEMP 97.7; O2SAT 94
[2023-09-21 09:00] VITALS: BP 126/81; PULSE 74; RESP 12; TEMP 97.6; O2SAT 100
[2023-09-21] MEDS ORDERED: ENOXAPARIN SOD 30 MG/0.3 ML SYRINGE SC ONE (10:15)
[2023-09-21] MEDS: SACUBITRIL-VALSARTAN 24mg/26mg TAB PO SCH ×2 (10:49→22:00)
[2023-09-21] MEDS: CLOPIDOGREL BISULFATE 75 MG TAB PO SCH (10:49)
[2023-09-21 13:00] VITALS: BP 111/79; PULSE 71; RESP 14; TEMP 97.4; O2SAT 100
[2023-09-21] MEDS ORDERED: OLANZapine 5 MG TAB PO ONE (13:30)
[2023-09-21] MEDS ORDERED: FLUoxetine HCL 20 MG CAP PO ONE (13:30)
[2023-09-21 17:00] VITALS: BP 125/72; PULSE 65; RESP 16; TEMP 97.1; O2SAT 99
[2023-09-21] MEDS: FUROSEMIDE 20 MG/2 ML VIAL IV SCH (18:00)
[2023-09-21 20:00] VITALS: BP 85/40; PULSE 79; RESP 18; TEMP 98.1; O2SAT 99
[2023-09-21] MEDS: ATORVASTATIN 20 MG TAB PO SCH (21:38)
[2023-09-21] MEDS: traZODone HCL 50 MG TAB PO SCH (21:38)
[2023-09-21] MEDS: METOPROLOL TARTRATE 25 MG TAB PO SCH (22:00)
[2023-09-22] VITALS (7 sets, daily range): BP systolic 69–120; BP diastolic 40–69; PULSE 43–79; RESP 15–20; TEMP 97.6–98.8; O2SAT 93–99
[2023-09-22] MEDS: FUROSEMIDE 20 MG/2 ML VIAL IV SCH (05:27)
[2023-09-22 05:42] LABS: Basophils # (auto) 0 10 ^3/uL (0-0.2); Basophils % (auto) 0.5 % (0.0-2.0); Eosinophils # (auto) 0 10 ^3/uL (0-0.8); Eosinophils % (auto) 0.2 % (0.0-7.0); Hematocrit 43.9 % (36.0-46.0); Hemoglobin 14.7 g/dL (12.2-16.2); Lymphocytes # (auto) 0.9 10 ^3/uL (0.4-5.4); Lymphocytes % (auto) 21.3 % (10.0-50.0); Mean Corpuscular Hemoglobin 31.9 pg (28.0-32.0); Mean Corpuscular Hgb Conc. 33.3 g/dL (32.0-36.0); Mean Corpuscular Volume 95.8 fL (80.0-100.0); Monocytes # (auto) 0.3 10 ^3/uL (0-1.3); Monocytes % (auto) 7.6 % (0.0-12.0); Neutrophils % (auto) 70.4 % (37.0-80.0); Nucleated Red Blood Cells % 0.2 %; Red Blood Cells 4.59 10^6/uL (4.0-5.20); Red Cell Distribution Width 13.6 % (11.8-14.3); White Blood Cell 4.2 10^3/uL (4.4-10.8)
[2023-09-22 06:03] LABS: Anion Gap 6 (5-15); Carbon Dioxide 25 mmol/L (20-30); Chloride 103 mmol/L (98-107); Sodium 134 mmol/L (136-145)
[2023-09-22 06:04] LABS: Calcium 8.8 mg/dL (8.7-10.4)
[2023-09-22 06:09] LABS: BUN/Creatinine Ratio 24.7 (10.0-20.0); Blood Urea Nitrogen 21 mg/dL (9-23); Glucose 101 mg/dL (74-106)
[2023-09-22] MEDS: EMPAGLIFLOZIN 10 MG TAB PO SCH (06:11)
[2023-09-22] MEDS: OLANZapine 5 MG TAB PO SCH (09:51)
[2023-09-22] MEDS: ENOXAPARIN SOD 30 MG/0.3 ML SYRINGE SC SCH (09:51)
[2023-09-22] MEDS: METOPROLOL TARTRATE 25 MG TAB PO SCH (09:52)
[2023-09-22] MEDS: CLOPIDOGREL BISULFATE 75 MG TAB PO SCH (09:52)
[2023-09-22] MEDS: FLUoxetine HCL 20 MG CAP PO SCH (09:52)
[2023-09-22] MEDS: SPIRONOLACTONE 25 MG TAB PO SCH (09:52)
[2023-09-22] MEDS: SACUBITRIL-VALSARTAN 24mg/26mg TAB PO SCH (09:52)
[2023-09-22] MEDS ORDERED: SODIUM CHLORIDE 0.9% 250 ML IV ONE (19:00)
[2023-09-22] MEDS: traZODone HCL 50 MG TAB PO SCH (21:47)
[2023-09-22] MEDS: ATORVASTATIN 20 MG TAB PO SCH (21:47)
[2023-09-23 05:00] VITALS: BP 119/46; PULSE 61; RESP 17; TEMP 98.3; O2SAT 95
[2023-09-23 05:50] LABS: Basophils # (auto) 0 10 ^3/uL (0-0.2); Basophils % (auto) 0.4 % (0.0-2.0); Eosinophils # (auto) 0 10 ^3/uL (0-0.8); Eosinophils % (auto) 0.5 % (0.0-7.0); Hematocrit 41.1 % (36.0-46.0); Hemoglobin 13.5 g/dL (12.2-16.2); Lymphocytes # (auto) 1.4 10 ^3/uL (0.4-5.4); Lymphocytes % (auto) 42.7 % (10.0-50.0); Mean Corpuscular Hemoglobin 31.8 pg (28.0-32.0); Mean Corpuscular Hgb Conc. 32.8 g/dL (32.0-36.0); Monocytes # (auto) 0.3 10 ^3/uL (0-1.3); Monocytes % (auto) 9.5 % (0.0-12.0); Neutrophils # (auto) 1.6 10 ^3/uL (1.6-8.6); Neutrophils % (auto) 46.9 % (37.0-80.0); Nucleated Red Blood Cells % 0.2 %; Red Blood Cells 4.23 10^6/uL (4.0-5.20); Red Cell Distribution Width 13.9 % (11.8-14.3); White Blood Cell 3.4 10^3/uL (4.4-10.8)
[2023-09-23] MEDS: EMPAGLIFLOZIN 10 MG TAB PO SCH (06:08)
[2023-09-23 06:14] LABS: Anion Gap 5 (5-15); Calcium 8.8 mg/dL (8.7-10.4); Carbon Dioxide 27 mmol/L (20-30); Chloride 105 mmol/L (98-107); Potassium 4.1 mmol/L (3.5-5.1); Sodium 137 mmol/L (136-145)
[2023-09-23 06:20] LABS: BUN/Creatinine Ratio 18.3 (10.0-20.0); Blood Urea Nitrogen 17 mg/dL (9-23); Glucose 71 mg/dL (74-106)
[2023-09-23 08:00] VITALS: BP 113/69; PULSE 72; RESP 18; TEMP 97.7; O2SAT 94
[2023-09-23 08:45] VITALS: BP 125/77; PULSE 65; RESP 18; TEMP 98.4; O2SAT 97
[2023-09-23] MEDS ORDERED: METOPROLOL TARTRATE 25 MG TAB PO SCH (10:00)
[2023-09-23] MEDS: CLOPIDOGREL BISULFATE 75 MG TAB PO SCH (10:28)
[2023-09-23] MEDS: FLUoxetine HCL 20 MG CAP PO SCH (10:29)
[2023-09-23] MEDS: ENOXAPARIN SOD 30 MG/0.3 ML SYRINGE SC SCH (10:29)
[2023-09-23] MEDS: SPIRONOLACTONE 25 MG TAB PO SCH (10:31)
[2023-09-23] MEDS: OLANZapine 5 MG TAB PO SCH (10:31)
[2023-09-23 11:19] VITALS: BP 125/77; PULSE 65; TEMP 36.9
[2023-09-23] MEDS ORDERED: SACU1TAB PO (12:24)
[2023-09-23] MEDS ORDERED: SPIR25TA PO (12:24)
== END 2023-09-23 12:55 | disposition home health service (06) | DRG 291 ==
LOC: EDBD 11:23 → ER 11:23 → OVERFLOW 09-20 01:40 → WEST WING 09-20 08:58 → TELE-WESTW 09-21 12:37
PROVIDERS: ADMIT Internal Medicine Geriatric Medicine; ATTEND Student in an Organized Health Care Education/Training Program
DX: I11.0 Hypertensive heart disease with heart failure (principal); I50.23 Acute on chronic systolic (congestive) heart failure; G93.40 Encephalopathy, unspecified; I95.9 Hypotension, unspecified; E87.6 Hypokalemia; E78.5 Hyperlipidemia, unspecified; F20.9 Schizophrenia, unspecified; F31.9 Bipolar disorder, unspecified; I48.91 Unspecified atrial fibrillation; M81.0 Age-related osteoporosis without current pathological fracture; R00.8 Other abnormalities of heart beat; R53.83 Other fatigue; Z86.73 Personal history of transient ischemic attack (TIA), and cerebral infarction without residual deficits; Z90.710 Acquired absence of both cervix and uterus
CPT/HCPCS: 36415; 70450; 71045; 71046; 80048; 80053; 80307; 81001; 83735; 83880; 84443; 85025; 93005; 93306; 93886; 97163; G0378

== ENCOUNTER 2023-12-04 21:25 | Inpatient (IN) | payer MEDICARE, MEDICAID ==
[~2023-12-04] VITALS: Ht 167.6 cm; Wt 51.4 kg
[~2023-12-04 21:25] MED LIST changes: -HYDR25TA5 PO; -LOSA50TA46 PO; +SPIR25TA PO
[2023-12-04 22:00] VITALS: PULSE 50; RESP 14; O2SAT 100
[2023-12-04 22:16] LABS: Basophils # (auto) 0 10 ^3/uL (0-0.2); Basophils % (auto) 0.4 % (0.0-2.0); Eosinophils # (auto) 0 10 ^3/uL (0-0.8); Hematocrit 37.7 % (36.0-46.0); Hemoglobin 12.2 g/dL (12.2-16.2); Lymphocytes # (auto) 1.3 10 ^3/uL (0.4-5.4); Lymphocytes % (auto) 27.9 % (10.0-50.0); Mean Corpuscular Hemoglobin 31.2 pg (28.0-32.0); Mean Corpuscular Hgb Conc. 32.4 g/dL (32.0-36.0); Mean Corpuscular Volume 96.4 fL (80.0-100.0); Monocytes # (auto) 0.4 10 ^3/uL (0-1.3); Monocytes % (auto) 8.2 % (0.0-12.0); Neutrophils % (auto) 62.5 % (37.0-80.0); Nucleated Red Blood Cells % 0.1 %; Red Blood Cells 3.91 10^6/uL (4.0-5.20); Red Cell Distribution Width 14.3 % (11.8-14.3); White Blood Cell 4.7 10^3/uL (4.4-10.8)
[2023-12-04 22:26] LABS: Chloride 110 mmol/L (98-107); Sodium 141 mmol/L (136-145)
[2023-12-04 22:27] LABS: Anion Gap 4 (5-15); Calcium 8.4 mg/dL (8.5-10.1); Carbon Dioxide 27 mmol/L (20-30)
[2023-12-04 22:32] LABS: BUN/Creatinine Ratio 26.7 (10.0-20.0); Blood Urea Nitrogen 27 mg/dL (9-23); Glucose 118 mg/dL (74-106)
[2023-12-04] MEDS ORDERED: HYDROcodone-ACET 5/325MG TAB PO PRN (23:00)
[2023-12-04] MEDS ORDERED: MAALOX PLUS or MAALOX 30 ML PO PRN (23:00)
[2023-12-04] MEDS ORDERED: DOCUSATE SOD 100 MG CAP PO PRN (23:00)
[2023-12-04] MEDS ORDERED: ACETAMINOPHEN 325 MG TAB PO PRN (23:00)
[2023-12-04] MEDS: SODIUM CHLORIDE 0.9% 1,000 ML IV SCH (23:33)
[2023-12-05] VITALS (7 sets, daily range): BP systolic 108–166; BP diastolic 59–82; PULSE 52–58; RESP 16–20; TEMP 97.8–98; O2SAT 96–99
[2023-12-05 05:15] LABS: Chloride 110 mmol/L (98-107); Potassium 4.7 mmol/L (3.5-5.1); Sodium 141 mmol/L (136-145)
[2023-12-05 05:16] LABS: Anion Gap 4 (5-15); Basophils # (auto) 0 10 ^3/uL (0-0.2); Basophils % (auto) 0.7 % (0.0-2.0); Carbon Dioxide 27 mmol/L (20-30); Eosinophils # (auto) 0 10 ^3/uL (0-0.8); Eosinophils % (auto) 0.3 % (0.0-7.0); Hematocrit 39.3 % (36.0-46.0); Lymphocytes # (auto) 1.2 10 ^3/uL (0.4-5.4); Lymphocytes % (auto) 20.9 % (10.0-50.0); Mean Corpuscular Hemoglobin 31.9 pg (28.0-32.0); Mean Corpuscular Hgb Conc. 33.2 g/dL (32.0-36.0); Monocytes # (auto) 0.5 10 ^3/uL (0-1.3); Monocytes % (auto) 8.1 % (0.0-12.0); Nucleated Red Blood Cells % 0.1 %; Red Blood Cells 4.09 10^6/uL (4.0-5.20); Red Cell Distribution Width 14.4 % (11.8-14.3); White Blood Cell 5.7 10^3/uL (4.4-10.8)
[2023-12-05 05:17] LABS: Calcium 9.1 mg/dL (8.5-10.1)
[2023-12-05 05:21] LABS: BUN/Creatinine Ratio 25.5 (10.0-20.0); Blood Urea Nitrogen 25 mg/dL (9-23); Glucose 79 mg/dL (74-106)
[2023-12-05 08:51] LABS: INR 1.07 (0.9-1.15); Partial Thromboplastin Time 20.5 SEC (24.5-34.5); Prothrombin Time 11.2 sec (9.3-11.8)
[2023-12-05] MEDS: EMPAGLIFLOZIN 10 MG TAB PO SCH (09:59)
[2023-12-05] MEDS: CLOPIDOGREL BISULFATE 75 MG TAB PO SCH (09:59)
[2023-12-05] MEDS: OLANZapine 5 MG TAB PO SCH (09:59)
[2023-12-05 13:14] LABS: Alanine Aminotransferase 31 U/L (7-40); Albumin 3.7 g/dL (3.2-4.8); Alkaline Phosphatase 50 U/L (46-116); Aspartate Aminotransferase 44 U/L (13-40); Bilirubin, Total 0.3 mg/dL (0.2-1.0); Magnesium 2.1 mg/dL (1.6-2.6); Total Protein 6.1 g/dL (5.7-8.2)
[2023-12-05] MEDS: SACUBITRIL-VALSARTAN 24mg/26mg TAB PO SCH (22:00)
[2023-12-05] MEDS: ATORVASTATIN 20 MG TAB PO SCH (22:33)
[2023-12-06] VITALS (8 sets, daily range): BP systolic 99–154; BP diastolic 49–80; PULSE 51–70; RESP 16–22; TEMP 97.7–98.6; O2SAT 92–100
[2023-12-06 05:07] LABS: Urine Epithelial Cast None Seen /hpf (<5)
[2023-12-06 05:36] LABS: Urine Bacteria NONE SEEN /hpf (None Seen); Urine Blood Negative /uL (Negative); Urine Clarity Clear (Clear); Urine Color Yellow (Yellow); Urine Protein, UAD Negative (Negative); Urine Specific Gravity 1.023 (1.001-1.035); Urine Urobilinogen Normal (Negative); Urine WBC 2 /hpf (0 - 5)
[2023-12-06 05:48] LABS: Basophils # (auto) 0 10 ^3/uL (0-0.2); Basophils % (auto) 0.8 % (0.0-2.0); Eosinophils # (auto) 0 10 ^3/uL (0-0.8); Hematocrit 39.2 % (36.0-46.0); Hemoglobin 12.7 g/dL (12.2-16.2); Lymphocytes # (auto) 1.2 10 ^3/uL (0.4-5.4); Mean Corpuscular Hemoglobin 31.4 pg (28.0-32.0); Mean Corpuscular Hgb Conc. 32.3 g/dL (32.0-36.0); Mean Corpuscular Volume 97.2 fL (80.0-100.0); Monocytes # (auto) 0.4 10 ^3/uL (0-1.3); Monocytes % (auto) 9.3 % (0.0-12.0); Neutrophils # (auto) 2.8 10 ^3/uL (1.6-8.6); Neutrophils % (auto) 61.9 % (37.0-80.0); Nucleated Red Blood Cells % 0.1 %; Red Blood Cells 4.03 10^6/uL (4.0-5.20); Red Cell Distribution Width 14.5 % (11.8-14.3); White Blood Cell 4.5 10^3/uL (4.4-10.8)
[2023-12-06 06:35] LABS: Anion Gap 7 (5-15); Carbon Dioxide 24 mmol/L (20-30); Chloride 109 mmol/L (98-107); Potassium 4.8 mmol/L (3.5-5.1); Sodium 140 mmol/L (136-145)
[2023-12-06 06:36] LABS: Calcium 8.9 mg/dL (8.7-10.4)
[2023-12-06 06:41] LABS: Blood Urea Nitrogen 16 mg/dL (9-23); Free T4 (Free Thyroxine) 0.9 ng/dL (0.89-1.76); Glucose 70 mg/dL (74-106)
[2023-12-06] MEDS: SPIRONOLACTONE 25 MG TAB PO SCH (08:58)
[2023-12-07] VITALS (7 sets, daily range): BP systolic 88–157; BP diastolic 49–88; PULSE 35–73; RESP 16–20; TEMP 97.5–98.5; O2SAT 96–100
[2023-12-07] MEDS: SPIRONOLACTONE 25 MG TAB PO ONE (07:37)
[2023-12-07 11:15] LABS: Basophils # (auto) 0 10 ^3/uL (0-0.2); Basophils % (auto) 0.4 % (0.0-2.0); Eosinophils # (auto) 0 10 ^3/uL (0-0.8); Eosinophils % (auto) 0.5 % (0.0-7.0); Hematocrit 39.3 % (36.0-46.0); Hemoglobin 13.2 g/dL (12.2-16.2); Lymphocytes # (auto) 1.4 10 ^3/uL (0.4-5.4); Lymphocytes % (auto) 22.4 % (10.0-50.0); Mean Corpuscular Hemoglobin 32.5 pg (28.0-32.0); Mean Corpuscular Hgb Conc. 33.6 g/dL (32.0-36.0); Mean Corpuscular Volume 96.8 fL (80.0-100.0); Monocytes # (auto) 0.6 10 ^3/uL (0-1.3); Monocytes % (auto) 9.6 % (0.0-12.0); Neutrophils # (auto) 4.3 10 ^3/uL (1.6-8.6); Neutrophils % (auto) 67.1 % (37.0-80.0); Red Blood Cells 4.06 10^6/uL (4.0-5.20); Red Cell Distribution Width 14.6 % (11.8-14.3); White Blood Cell 6.4 10^3/uL (4.4-10.8)
[2023-12-07 11:25] LABS: Chloride 108 mmol/L (98-107); Potassium 4.4 mmol/L (3.5-5.1); Sodium 138 mmol/L (136-145)
[2023-12-07 11:26] LABS: Anion Gap 5 (5-15); Carbon Dioxide 25 mmol/L (20-30)
[2023-12-07 11:31] LABS: Blood Urea Nitrogen 18 mg/dL (9-23); Glucose 75 mg/dL (74-106); Magnesium 1.8 mg/dL (1.6-2.6)
[2023-12-08] VITALS (8 sets, daily range): BP systolic 103–146; BP diastolic 49–83; PULSE 40–68; RESP 16–20; TEMP 97.9–98.3; O2SAT 97–100
[2023-12-08 06:14] LABS: Basophils # (auto) 0 10 ^3/uL (0-0.2); Basophils % (auto) 0.5 % (0.0-2.0); Eosinophils # (auto) 0 10 ^3/uL (0-0.8); Eosinophils % (auto) 0.8 % (0.0-7.0); Hematocrit 41.2 % (36.0-46.0); Hemoglobin 13.9 g/dL (12.2-16.2); Lymphocytes # (auto) 1.7 10 ^3/uL (0.4-5.4); Lymphocytes % (auto) 28.3 % (10.0-50.0); Mean Corpuscular Hemoglobin 32.4 pg (28.0-32.0); Mean Corpuscular Hgb Conc. 33.8 g/dL (32.0-36.0); Mean Corpuscular Volume 95.9 fL (80.0-100.0); Monocytes # (auto) 0.5 10 ^3/uL (0-1.3); Monocytes % (auto) 8.7 % (0.0-12.0); Neutrophils # (auto) 3.8 10 ^3/uL (1.6-8.6); Neutrophils % (auto) 61.7 % (37.0-80.0); Red Blood Cells 4.29 10^6/uL (4.0-5.20); Red Cell Distribution Width 14.3 % (11.8-14.3); White Blood Cell 6.2 10^3/uL (4.4-10.8)
[2023-12-08 06:15] LABS: Chloride 104 mmol/L (98-107); Potassium 4.5 mmol/L (3.5-5.1); Sodium 139 mmol/L (136-145)
[2023-12-08 06:16] LABS: Anion Gap 7 (5-15); Calcium 9.2 mg/dL (8.7-10.4); Carbon Dioxide 28 mmol/L (20-30)
[2023-12-08 06:21] LABS: BUN/Creatinine Ratio 23.4 (10.0-20.0); Blood Urea Nitrogen 22 mg/dL (9-23); Glucose 83 mg/dL (74-106)
[2023-12-08 06:22] LABS: Magnesium 1.9 mg/dL (1.6-2.6)
[2023-12-09 05:00] VITALS: BP 128/64; PULSE 46; RESP 18; TEMP 98.2; O2SAT 96
[2023-12-09 07:01] LABS: Basophils # (auto) 0 10 ^3/uL (0-0.2); Basophils % (auto) 0.5 % (0.0-2.0); Eosinophils # (auto) 0.1 10 ^3/uL (0-0.8); Eosinophils % (auto) 1.2 % (0.0-7.0); Hematocrit 40.3 % (36.0-46.0); Hemoglobin 13.4 g/dL (12.2-16.2); Lymphocytes # (auto) 1.6 10 ^3/uL (0.4-5.4); Lymphocytes % (auto) 32.2 % (10.0-50.0); Mean Corpuscular Hemoglobin 31.7 pg (28.0-32.0); Mean Corpuscular Hgb Conc. 33.3 g/dL (32.0-36.0); Mean Corpuscular Volume 95.4 fL (80.0-100.0); Monocytes # (auto) 0.5 10 ^3/uL (0-1.3); Monocytes % (auto) 9.2 % (0.0-12.0); Neutrophils # (auto) 2.8 10 ^3/uL (1.6-8.6); Neutrophils % (auto) 56.9 % (37.0-80.0); Nucleated Red Blood Cells % 0.2 %; Red Blood Cells 4.22 10^6/uL (4.0-5.20); Red Cell Distribution Width 14.5 % (11.8-14.3); White Blood Cell 4.9 10^3/uL (4.4-10.8)
[2023-12-09 07:09] LABS: Chloride 104 mmol/L (98-107); Sodium 138 mmol/L (136-145)
[2023-12-09 07:10] LABS: Anion Gap 4 (5-15); Carbon Dioxide 30 mmol/L (20-30)
[2023-12-09 07:11] LABS: Calcium 9.8 mg/dL (8.5-10.1)
[2023-12-09 07:15] LABS: BUN/Creatinine Ratio 23.1 (10.0-20.0); Blood Urea Nitrogen 21 mg/dL (9-23); Glucose 73 mg/dL (74-106)
[2023-12-09 08:20] VITALS: BP 137/57; PULSE 69; PULSE 74; RESP 18; RESP 20; TEMP 97.9; O2SAT 100
[2023-12-09 09:00] VITALS: BP 137/57; PULSE 74; RESP 20; TEMP 97.9; O2SAT 100
[2023-12-09 13:00] VITALS: BP 153/65; PULSE 67; RESP 20; TEMP 97.5; O2SAT 98
[2023-12-09] MEDS: ENOXAPARIN SOD 60 MG/0.6 ML SYRINGE SC ONE (16:38)
[2023-12-09] MEDS: ENOXAPARIN SOD 60 MG/0.6 ML SYRINGE SC SCH (17:18)
[2023-12-09 19:30] VITALS: BP 126/74; PULSE 48; PULSE 68; RESP 18; TEMP 97.8; O2SAT 98
[2023-12-09 22:00] VITALS: BP 126/74; PULSE 37; RESP 18; TEMP 97.8; O2SAT 98
[2023-12-10] VITALS (11 sets, daily range): BP systolic 101–150; BP diastolic 52–109; PULSE 38–80; RESP 16–18; TEMP 97.5–98.7; O2SAT 96–100
[2023-12-10] MEDS: VANCOMYCIN HCL 1000 MG VL ONE (12:35)
[2023-12-10] MEDS: fentaNYL CITRATE 100 MCG/2 ML VL ONE (12:36)
[2023-12-10] MEDS: VANCOMYCIN 1GM/200ML 200 ML IV ONE (12:36)
[2023-12-10] MEDS: MIDAZOLAM HCL 2MG/2ML 2ml VIAL (1mg/ml) ONE (12:36)
[2023-12-10] MEDS: LIDOCAINE 2%HCL (LOCAL ANESTH.) INJ 20ML MDV ONE (12:36)
[2023-12-10] MEDS: IODIXANOL 320MG/ML 100ML BTL IV ONE (13:41)
[2023-12-10] MEDS: NITROGLYCERIN 0.4MG/DOSE SPRAY 4.9GM ONE (13:59)
[2023-12-10] MEDS: FLUMAZENIL 0.1 MG/ML INJ 10ML MDV IV ONE (14:01)
[2023-12-10] MEDS: VERAPAMIL 2.5MG/ML INJ 2ML VIAL IV ONE (14:06)
[2023-12-10] MEDS: METOPROLOL TARTRATE 1MG/1ML-5ML VIAL IV ONE (14:36)
[2023-12-10] MEDS: ceFAZolin 1GM/50ML 50 ML IV SCH (16:39)
[2023-12-10] MEDS: ONDANSETRON HCL 4 MG/2 ML VIAL IV PRN (16:44)
[2023-12-11] MEDS: VANCOMYCIN 1GM/200ML 200 ML IV SCH (01:16)
[2023-12-11 05:00] VITALS: BP 106/63; PULSE 37; RESP 15; TEMP 98.2; O2SAT 97
[2023-12-11 05:47] LABS: Basophils # (auto) 0 10 ^3/uL (0-0.2); Basophils % (auto) 0.1 % (0.0-2.0); Eosinophils # (auto) 0 10 ^3/uL (0-0.8); Hematocrit 41.1 % (36.0-46.0); Hemoglobin 13.6 g/dL (12.2-16.2); Lymphocytes # (auto) 1.2 10 ^3/uL (0.4-5.4); Lymphocytes % (auto) 12.9 % (10.0-50.0); Mean Corpuscular Hemoglobin 31.8 pg (28.0-32.0); Mean Corpuscular Volume 96.2 fL (80.0-100.0); Monocytes # (auto) 0.6 10 ^3/uL (0-1.3); Monocytes % (auto) 6.9 % (0.0-12.0); Neutrophils # (auto) 7.5 10 ^3/uL (1.6-8.6); Neutrophils % (auto) 80.1 % (37.0-80.0); Nucleated Red Blood Cells % 0.1 %; Red Blood Cells 4.27 10^6/uL (4.0-5.20); Red Cell Distribution Width 14.3 % (11.8-14.3); White Blood Cell 9.3 10^3/uL (4.4-10.8)
[2023-12-11 06:01] LABS: Chloride 105 mmol/L (98-107); Potassium 4.9 mmol/L (3.5-5.1); Sodium 137 mmol/L (136-145)
[2023-12-11 06:02] LABS: Anion Gap 5 (5-15); Calcium 9.2 mg/dL (8.7-10.4); Carbon Dioxide 27 mmol/L (20-30)
[2023-12-11 06:07] LABS: BUN/Creatinine Ratio 24.7 (10.0-20.0); Blood Urea Nitrogen 22 mg/dL (9-23); Glucose 90 mg/dL (74-106)
[2023-12-11 08:00] VITALS: PULSE 86
[2023-12-11 09:00] VITALS: BP 127/80; PULSE 69; RESP 20; TEMP 98.8; O2SAT 93
[2023-12-11 13:00] VITALS: BP 121/56; PULSE 50; RESP 17; TEMP 98.4; O2SAT 97
[2023-12-11] MEDS: MAGNESIUM SULFATE 1GM/100ML 100 ML IV SCH (14:38)
[2023-12-11] MEDS ORDERED: HYDR25TA4 PO (16:54)
[2023-12-11] MEDS ORDERED: FLEC100T PO (16:54)
[2023-12-11 17:00] VITALS: BP 111/74; PULSE 84; RESP 17; TEMP 97.8; O2SAT 98
[2023-12-11 20:00] VITALS: BP 116/53; PULSE 81; PULSE 83; RESP 16; TEMP 98
[2023-12-12] VITALS (7 sets, daily range): BP systolic 107–141; BP diastolic 52–73; PULSE 43–91; RESP 15–18; TEMP 97.3–98.4; O2SAT 97–99
[2023-12-12 07:47] LABS: Anion Gap 7 (5-15); Carbon Dioxide 24 mmol/L (20-30); Chloride 105 mmol/L (98-107); Potassium 4.6 mmol/L (3.5-5.1); Sodium 136 mmol/L (136-145)
[2023-12-12 07:48] LABS: Calcium 8.6 mg/dL (8.7-10.4)
[2023-12-12 07:53] LABS: BUN/Creatinine Ratio 27.4 (10.0-20.0); Blood Urea Nitrogen 20 mg/dL (9-23); Glucose 80 mg/dL (74-106); Magnesium 2.5 mg/dL (1.6-2.6)
[2023-12-12 07:58] LABS: Basophils # (auto) 0 10 ^3/uL (0-0.2); Basophils % (auto) 0.5 % (0.0-2.0); Eosinophils # (auto) 0 10 ^3/uL (0-0.8); Eosinophils % (auto) 0.4 % (0.0-7.0); Hematocrit 34.6 % (36.0-46.0); Hemoglobin 11.3 g/dL (12.2-16.2); Lymphocytes % (auto) 14.2 % (10.0-50.0); Mean Corpuscular Hemoglobin 31.2 pg (28.0-32.0); Mean Corpuscular Hgb Conc. 32.7 g/dL (32.0-36.0); Mean Corpuscular Volume 95.2 fL (80.0-100.0); Monocytes # (auto) 0.6 10 ^3/uL (0-1.3); Monocytes % (auto) 8.3 % (0.0-12.0); Neutrophils # (auto) 5.5 10 ^3/uL (1.6-8.6); Neutrophils % (auto) 76.6 % (37.0-80.0); Red Blood Cells 3.63 10^6/uL (4.0-5.20); Red Cell Distribution Width 14.1 % (11.8-14.3); White Blood Cell 7.2 10^3/uL (4.4-10.8)
[2023-12-13] VITALS (9 sets, daily range): BP systolic 112–129; BP diastolic 47–66; PULSE 43–97; RESP 16–19; TEMP 98–98.5; O2SAT 96–98
[2023-12-13 05:03] LABS: Basophils # (auto) 0 10 ^3/uL (0-0.2); Basophils % (auto) 0.8 % (0.0-2.0); Eosinophils # (auto) 0.1 10 ^3/uL (0-0.8); Eosinophils % (auto) 1.4 % (0.0-7.0); Hematocrit 32.9 % (36.0-46.0); Hemoglobin 11.2 g/dL (12.2-16.2); Lymphocytes # (auto) 1.6 10 ^3/uL (0.4-5.4); Mean Corpuscular Hemoglobin 32.1 pg (28.0-32.0); Mean Corpuscular Hgb Conc. 34.1 g/dL (32.0-36.0); Mean Corpuscular Volume 94.2 fL (80.0-100.0); Monocytes # (auto) 0.6 10 ^3/uL (0-1.3); Monocytes % (auto) 10.7 % (0.0-12.0); Neutrophils # (auto) 3.4 10 ^3/uL (1.6-8.6); Neutrophils % (auto) 59.1 % (37.0-80.0); Red Blood Cells 3.49 10^6/uL (4.0-5.20); White Blood Cell 5.8 10^3/uL (4.4-10.8)
[2023-12-13 05:37] LABS: Alanine Aminotransferase 34 U/L (7-40); Albumin 3.7 g/dL (3.2-4.8); Alkaline Phosphatase 48 U/L (46-116); Anion Gap 7 (5-15); Aspartate Aminotransferase 44 U/L (13-40); BUN/Creatinine Ratio 25.6 (10.0-20.0); Bilirubin, Total 0.5 mg/dL (0.2-1.0); Blood Urea Nitrogen 21 mg/dL (9-23); Calcium 8.8 mg/dL (8.7-10.4); Carbon Dioxide 25 mmol/L (20-30); Chloride 105 mmol/L (98-107); Glucose 85 mg/dL (74-106); Potassium 4.8 mmol/L (3.5-5.1); Sodium 137 mmol/L (136-145); Total Protein 6.1 g/dL (5.7-8.2)
[2023-12-14 05:00] VITALS: BP 131/60; PULSE 48; RESP 18; TEMP 97.5; O2SAT 97
[2023-12-14 06:46] LABS: Alanine Aminotransferase 38 U/L (7-40); Albumin 3.7 g/dL (3.2-4.8); Alkaline Phosphatase 53 U/L (46-116); Anion Gap 7 (5-15); Aspartate Aminotransferase 48 U/L (13-40); BUN/Creatinine Ratio 27.8 (10.0-20.0); Basophils # (auto) 0 10 ^3/uL (0-0.2); Basophils % (auto) 0.6 % (0.0-2.0); Blood Urea Nitrogen 22 mg/dL (9-23); Calcium 9.1 mg/dL (8.7-10.4); Carbon Dioxide 24 mmol/L (20-30); Chloride 105 mmol/L (98-107); Eosinophils # (auto) 0.1 10 ^3/uL (0-0.8); Eosinophils % (auto) 0.8 % (0.0-7.0); Glucose 89 mg/dL (74-106); Hematocrit 33.4 % (36.0-46.0); Hemoglobin 11.2 g/dL (12.2-16.2); Lymphocytes # (auto) 1.5 10 ^3/uL (0.4-5.4); Lymphocytes % (auto) 20.5 % (10.0-50.0); Mean Corpuscular Hemoglobin 32.2 pg (28.0-32.0); Mean Corpuscular Hgb Conc. 33.4 g/dL (32.0-36.0); Mean Corpuscular Volume 96.2 fL (80.0-100.0); Monocytes # (auto) 0.6 10 ^3/uL (0-1.3); Neutrophils # (auto) 5.2 10 ^3/uL (1.6-8.6); Neutrophils % (auto) 70.1 % (37.0-80.0); Potassium 4.8 mmol/L (3.5-5.1); Red Blood Cells 3.47 10^6/uL (4.0-5.20); Sodium 136 mmol/L (136-145); White Blood Cell 7.5 10^3/uL (4.4-10.8)
[2023-12-14 06:47] LABS: Bilirubin, Total 0.5 mg/dL (0.2-1.0); Total Protein 6.3 g/dL (5.7-8.2)
[2023-12-14 08:00] VITALS: BP 128/48; PULSE 81; RESP 16; RESP 18; TEMP 98.6
[2023-12-14 08:30] VITALS: BP 123/58; PULSE 87; RESP 17; TEMP 98.4; O2SAT 100
[2023-12-14 12:30] VITALS: BP 128/48; PULSE 45; RESP 17; TEMP 98.8; O2SAT 97
[2023-12-14 17:00] VITALS: BP 109/52; PULSE 42; RESP 16; TEMP 99.1; O2SAT 95
[2023-12-14] MEDS: CEPHALEXIN 250 MG CAP PO SCH (18:26)
[2023-12-14 20:00] VITALS: PULSE 72; PULSE 81; RESP 16; O2SAT 96
[2023-12-14] MEDS: AMIODARONE HCL 200 MG TAB PO SCH (21:17)
[2023-12-15] VITALS (9 sets, daily range): BP systolic 107–126; BP diastolic 61–72; PULSE 45–92; RESP 16–22; TEMP 97.8–99.5; O2SAT 95–100
[2023-12-15 06:45] LABS: Basophils # (auto) 0 10 ^3/uL (0-0.2); Basophils % (auto) 0.6 % (0.0-2.0); Eosinophils # (auto) 0 10 ^3/uL (0-0.8); Eosinophils % (auto) 0.6 % (0.0-7.0); Hematocrit 31.4 % (36.0-46.0); Hemoglobin 10.4 g/dL (12.2-16.2); Lymphocytes # (auto) 1.1 10 ^3/uL (0.4-5.4); Lymphocytes % (auto) 17.9 % (10.0-50.0); Mean Corpuscular Hemoglobin 31.9 pg (28.0-32.0); Mean Corpuscular Hgb Conc. 33.1 g/dL (32.0-36.0); Mean Corpuscular Volume 96.3 fL (80.0-100.0); Monocytes # (auto) 0.6 10 ^3/uL (0-1.3); Monocytes % (auto) 9.9 % (0.0-12.0); Neutrophils # (auto) 4.5 10 ^3/uL (1.6-8.6); Nucleated Red Blood Cells % 0.1 %; Red Blood Cells 3.26 10^6/uL (4.0-5.20); Red Cell Distribution Width 14.1 % (11.8-14.3); White Blood Cell 6.3 10^3/uL (4.4-10.8)
[2023-12-15 07:05] LABS: Alanine Aminotransferase 36 U/L (7-40); Albumin 3.5 g/dL (3.2-4.8); Alkaline Phosphatase 53 U/L (46-116); Anion Gap 5 (5-15); BUN/Creatinine Ratio 28.9 (10.0-20.0); Blood Urea Nitrogen 22 mg/dL (9-23); Calcium 8.7 mg/dL (8.7-10.4); Carbon Dioxide 28 mmol/L (20-30); Chloride 106 mmol/L (98-107); Glucose 80 mg/dL (74-106); Potassium 4.6 mmol/L (3.5-5.1); Sodium 139 mmol/L (136-145)
[2023-12-15 07:06] LABS: Aspartate Aminotransferase 41 U/L (13-40); Bilirubin, Total 0.5 mg/dL (0.2-1.0); Total Protein 6.1 g/dL (5.7-8.2)
[2023-12-16] VITALS (8 sets, daily range): BP systolic 102–124; BP diastolic 44–82; PULSE 70–82; RESP 18–20; TEMP 97.6–98.8; O2SAT 95–98
[2023-12-17] VITALS (7 sets, daily range): BP systolic 114–143; BP diastolic 52–85; PULSE 70–75; RESP 18–20; TEMP 97.5–98.2; O2SAT 90–99
[2023-12-17 14:41] LABS: Basophils # (auto) 0.1 10 ^3/uL (0-0.2); Basophils % (auto) 1.1 % (0.0-2.0); Eosinophils # (auto) 0.1 10 ^3/uL (0-0.8); Eosinophils % (auto) 1.4 % (0.0-7.0); Hematocrit 32.6 % (36.0-46.0); Hemoglobin 10.6 g/dL (12.2-16.2); Lymphocytes # (auto) 1.4 10 ^3/uL (0.4-5.4); Lymphocytes % (auto) 18.6 % (10.0-50.0); Mean Corpuscular Hemoglobin 30.8 pg (28.0-32.0); Mean Corpuscular Hgb Conc. 32.5 g/dL (32.0-36.0); Mean Corpuscular Volume 94.9 fL (80.0-100.0); Monocytes # (auto) 0.9 10 ^3/uL (0-1.3); Monocytes % (auto) 11.2 % (0.0-12.0); Neutrophils # (auto) 5.2 10 ^3/uL (1.6-8.6); Neutrophils % (auto) 67.7 % (37.0-80.0); Red Blood Cells 3.44 10^6/uL (4.0-5.20); Red Cell Distribution Width 13.4 % (11.8-14.3); White Blood Cell 7.6 10^3/uL (4.4-10.8)
[2023-12-17 14:46] LABS: Chloride 106 mmol/L (98-107); Potassium 4.5 mmol/L (3.5-5.1); Sodium 139 mmol/L (136-145)
[2023-12-17 14:47] LABS: Anion Gap 4 (5-15); Carbon Dioxide 29 mmol/L (20-30)
[2023-12-17 14:52] LABS: Blood Urea Nitrogen 27 mg/dL (9-23); Glucose 82 mg/dL (74-106)
[2023-12-18] VITALS (7 sets, daily range): BP systolic 105–136; BP diastolic 46–79; PULSE 69–86; RESP 14–21; TEMP 97.9–98.5; O2SAT 92–98
[2023-12-19 05:00] VITALS: BP 143/84; PULSE 72; RESP 16; TEMP 97.8; O2SAT 96
[2023-12-19 08:00] VITALS: PULSE 70
[2023-12-19 08:56] VITALS: BP 121/81; PULSE 69; RESP 16; TEMP 98.6; O2SAT 92
[2023-12-19 12:43] VITALS: BP 120/70; PULSE 66; RESP 16; TEMP 97.7; O2SAT 100
== END 2023-12-19 17:45 | disposition home health service (06) | DRG 277 ==
LOC: ER 21:25 → EDBD 21:25 → TELE 23:02 → TELE-WESTW 12-05 09:37
PROVIDERS: ADMIT Internal Medicine Geriatric Medicine; ATTEND Internal Medicine Cardiovascular Disease
PROC: 0JH609Z Insertion of Cardiac Resynchronization Defibrillator Pulse Generator into Chest Subcutaneous Tissue and Fascia, Open Approach (ICD-10-PCS; principal; 2023-12-10)
PROC: 02HK3KZ Insertion of Defibrillator Lead into Right Ventricle, Percutaneous Approach (ICD-10-PCS; 2023-12-10)
PROC: 02HL3KZ Insertion of Defibrillator Lead into Left Ventricle, Percutaneous Approach (ICD-10-PCS; 2023-12-10)
PROC: 02H63KZ Insertion of Defibrillator Lead into Right Atrium, Percutaneous Approach (ICD-10-PCS; 2023-12-10)
DX: I47.20 Ventricular tachycardia, unspecified (principal); I42.0 Dilated cardiomyopathy; I50.22 Chronic systolic (congestive) heart failure; I11.0 Hypertensive heart disease with heart failure; R55 Syncope and collapse; I48.91 Unspecified atrial fibrillation; E78.5 Hyperlipidemia, unspecified; F31.9 Bipolar disorder, unspecified; Y83.1 Surgical operation with implant of artificial internal device as the cause of abnormal reaction of the patient, or of later complication, without mention of misadventure at the time of the procedure; R00.1 Bradycardia, unspecified; F20.9 Schizophrenia, unspecified; E05.90 Thyrotoxicosis, unspecified without thyrotoxic crisis or storm; R56.9 Unspecified convulsions; Z86.73 Personal history of transient ischemic attack (TIA), and cerebral infarction without residual deficits; Z90.710 Acquired absence of both cervix and uterus; S20.219A Contusion of unspecified front wall of thorax, initial encounter
CPT/HCPCS: 33225; 33249; 36415; 70450; 71045; 76536; 80048; 80053; 81001; 83605; 83735; 83880; 84439; 84443; 84481; 84484; 85025; 85610; 85730; 93005; 93886; 97110; 97116; 97163; 97530; 99152; 99153; 99291; G0378; J2250; J2405; Q9967

== ENCOUNTER 2023-12-20 17:16 | Inpatient (IN) | payer MEDICARE, MEDICAID ==
[~2023-12-20] VITALS: Ht 162.6 cm; Wt 53.4 kg
[~2023-12-20 17:16] MED LIST changes: +FLEC100T PO; +HYDR25TA4 PO
[2023-12-20 18:00] VITALS: PULSE 68; RESP 24; O2SAT 98
[2023-12-20] MEDS: SODIUM CHLORIDE 0.9% 500 ML IV ONE ×2 (18:17→19:44)
[2023-12-20 18:32] LABS: Chloride 107 mmol/L (98-107); Potassium 4.3 mmol/L (3.5-5.1); Sodium 140 mmol/L (136-145)
[2023-12-20 18:33] LABS: Anion Gap 3 (5-15); Calcium 9.3 mg/dL (8.5-10.1); Carbon Dioxide 30 mmol/L (20-30)
[2023-12-20 18:38] LABS: BUN/Creatinine Ratio 28.3 (10.0-20.0); Blood Urea Nitrogen 36 mg/dL (9-23); Glucose 99 mg/dL (74-106)
[2023-12-20 18:45] LABS: Basophils # (auto) 0 10 ^3/uL (0-0.2); Basophils % (auto) 0.5 % (0.0-2.0); Eosinophils # (auto) 0.1 10 ^3/uL (0-0.8); Eosinophils % (auto) 0.8 % (0.0-7.0); Hematocrit 33.2 % (36.0-46.0); Lymphocytes # (auto) 1.2 10 ^3/uL (0.4-5.4); Lymphocytes % (auto) 15.2 % (10.0-50.0); Mean Corpuscular Hemoglobin 31.6 pg (28.0-32.0); Mean Corpuscular Hgb Conc. 33.1 g/dL (32.0-36.0); Mean Corpuscular Volume 95.7 fL (80.0-100.0); Monocytes % (auto) 13.4 % (0.0-12.0); Neutrophils # (auto) 5.5 10 ^3/uL (1.6-8.6); Neutrophils % (auto) 70.1 % (37.0-80.0); Red Blood Cells 3.47 10^6/uL (4.0-5.20); Red Cell Distribution Width 13.7 % (11.8-14.3); White Blood Cell 7.8 10^3/uL (4.4-10.8)
[2023-12-20] MEDS ORDERED: ACETAMINOPHEN 325 MG TAB PO PRN (19:45)
[2023-12-20] MEDS ORDERED: NITROGLYCERIN 0.4 MG SL TAB SL PRN (19:45)
[2023-12-20] MEDS ORDERED: MORPHINE SULFATE INJ 2 MG/ml SYRG IV PRN (19:45)
[2023-12-20 20:05] VITALS: PULSE 66; RESP 15; O2SAT 96
[2023-12-20 21:04] LABS: INR 1.07 (0.9-1.15); Prothrombin Time 11.2 sec (9.3-11.8)
[2023-12-20] MEDS: ALENDRONATE SODIUM 10 MG TAB PO SCH (22:30)
[2023-12-20] MEDS: ATORVASTATIN 20 MG TAB PO SCH (22:39)
[2023-12-20 23:21] VITALS: PULSE 65; RESP 18; RESP 20; O2SAT 98
[2023-12-21] VITALS (8 sets, daily range): BP systolic 80–111; BP diastolic 43–64; PULSE 65–76; RESP 15–18; TEMP 97.8–98.8; O2SAT 92–100
[2023-12-21] MEDS: FLECAINIDE ACETATE 50 MG TAB PO SCH (00:27)
[2023-12-21] MEDS: EMPAGLIFLOZIN 10 MG TAB PO SCH (06:45)
[2023-12-21 07:37] LABS: Basophils # (auto) 0 10 ^3/uL (0-0.2); Basophils % (auto) 0.5 % (0.0-2.0); Eosinophils # (auto) 0.1 10 ^3/uL (0-0.8); Eosinophils % (auto) 1.4 % (0.0-7.0); Hematocrit 33.3 % (36.0-46.0); Hemoglobin 10.9 g/dL (12.2-16.2); Lymphocytes # (auto) 1.2 10 ^3/uL (0.4-5.4); Lymphocytes % (auto) 22.1 % (10.0-50.0); Mean Corpuscular Hgb Conc. 32.7 g/dL (32.0-36.0); Mean Corpuscular Volume 97.9 fL (80.0-100.0); Monocytes # (auto) 0.7 10 ^3/uL (0-1.3); Monocytes % (auto) 12.7 % (0.0-12.0); Neutrophils # (auto) 3.6 10 ^3/uL (1.6-8.6); Neutrophils % (auto) 63.3 % (37.0-80.0); Nucleated Red Blood Cells % 0.1 %; Red Cell Distribution Width 14.4 % (11.8-14.3); White Blood Cell 5.6 10^3/uL (4.4-10.8)
[2023-12-21 07:44] LABS: Alanine Aminotransferase 35 U/L (7-40); Albumin 3.4 g/dL (3.2-4.8); Alkaline Phosphatase 52 U/L (46-116); Anion Gap 5 (5-15); Aspartate Aminotransferase 41 U/L (13-40); BUN/Creatinine Ratio 29.9 (10.0-20.0); Bilirubin, Total 0.5 mg/dL (0.2-1.0); Blood Urea Nitrogen 32 mg/dL (9-23); Calcium 8.7 mg/dL (8.5-10.1); Carbon Dioxide 25 mmol/L (20-30); Chloride 112 mmol/L (98-107); Glucose 80 mg/dL (74-106); Potassium 4.7 mmol/L (3.5-5.1); Sodium 142 mmol/L (136-145); Total Protein 6.1 g/dL (5.7-8.2)
[2023-12-21] MEDS: SACUBITRIL-VALSARTAN 24mg/26mg TAB PO SCH (08:36)
[2023-12-21] MEDS: FLUoxetine HCL 20 MG CAP PO SCH (09:56)
[2023-12-21] MEDS: SPIRONOLACTONE 25 MG TAB PO SCH (09:56)
[2023-12-21] MEDS: CLOPIDOGREL BISULFATE 75 MG TAB PO SCH (09:57)
[2023-12-21] MEDS: OLANZapine 5 MG TAB PO SCH (09:57)
[2023-12-21] MEDS: hydroCHLOROthiazide 25 MG TAB PO SCH (10:00)
[2023-12-21] MEDS: FUROSEMIDE 20 MG TAB PO SCH (10:00)
[2023-12-22] VITALS (7 sets, daily range): BP systolic 98–128; BP diastolic 45–81; PULSE 64–77; RESP 17–18; TEMP 36.6; O2SAT 92–99
[2023-12-22] MEDS: AMIODARONE HCL 200 MG TAB PO SCH (09:25)
[2023-12-23] VITALS (7 sets, daily range): BP systolic 92–134; BP diastolic 43–84; PULSE 65–79; RESP 17–20; TEMP 92.2–98.3; O2SAT 94–100
[2023-12-24] VITALS (7 sets, daily range): BP systolic 103–122; BP diastolic 54–70; PULSE 65–85; RESP 16–19; TEMP 97.7–98.5; O2SAT 94–98
[2023-12-24] MEDS: ceFAZolin 1GM/50ML 50 ML IV SCH (22:31)
[2023-12-25] VITALS (9 sets, daily range): BP systolic 88–149; BP diastolic 47–82; PULSE 60–76; RESP 12–20; TEMP 97.7–98.6; O2SAT 96–97
[2023-12-25 07:05] LABS: INR 1.06 (0.9-1.15); Prothrombin Time 11.1 sec (9.3-11.8)
[2023-12-25 07:09] LABS: Alanine Aminotransferase 35 U/L (7-40); Albumin 3.7 g/dL (3.2-4.8); Alkaline Phosphatase 55 U/L (46-116); Anion Gap 5 (5-15); Aspartate Aminotransferase 48 U/L (13-40); BUN/Creatinine Ratio 24.8 (10.0-20.0); Blood Urea Nitrogen 27 mg/dL (9-23); Calcium 9.5 mg/dL (8.5-10.1); Carbon Dioxide 28 mmol/L (20-30); Chloride 106 mmol/L (98-107); Glucose 84 mg/dL (74-106); Potassium 4.5 mmol/L (3.5-5.1); Sodium 139 mmol/L (136-145)
[2023-12-25 07:10] LABS: Bilirubin, Total 0.5 mg/dL (0.2-1.0); Total Protein 6.3 g/dL (5.7-8.2)
[2023-12-25 07:29] LABS: Hematocrit 32.9 % (36.0-46.0); Hemoglobin 10.7 g/dL (12.2-16.2); Mean Corpuscular Hemoglobin 31.3 pg (28.0-32.0); Mean Corpuscular Hgb Conc. 32.5 g/dL (32.0-36.0); Mean Corpuscular Volume 96.2 fL (80.0-100.0); Red Blood Cells 3.42 10^6/uL (4.0-5.20); Red Cell Distribution Width 14.4 % (11.8-14.3); White Blood Cell 7.9 10^3/uL (4.4-10.8)
[2023-12-25 07:31] LABS: Band Neutrophils % (manual) 0; Basophils % (manual) 0 (0.0-2.0); Blast Cells 0; Eosinophils % (manual) 0 (0-7); Metamyelocytes % 0; Promyelocytes % 0; Reactive Lymphocytes 0
[2023-12-25 08:56] LABS: Lymphocytes % (manual) 12 (10.0-50.0); Monocytes % (manual) 15 (0-12); Myelocytes % 2
[2023-12-25 08:57] LABS: Platelet Estimate Adequate
[2023-12-25] MEDS: MIDAZOLAM HCL 2MG/2ML 2ml VIAL (1mg/ml) ONE (11:45)
[2023-12-25] MEDS: fentaNYL CITRATE 100 MCG/2 ML VL ONE (11:45)
[2023-12-25] MEDS: IOHEXOL 350 MG/ML 100ML IJ ONE (11:46)
[2023-12-25] MEDS: HEPARIN IN NS 1000Units/500mL 0 ML ONE (11:46)
[2023-12-25] MEDS: LIDOCAINE 2%HCL (LOCAL ANESTH.) INJ 20ML MDV ONE ×2 (11:46→12:38)
[2023-12-25] MEDS: VANCOMYCIN HCL 1000 MG VL ONE (12:10)
[2023-12-25] MEDS: VANCOMYCIN 1GM/200ML 200 ML IV ONE (12:11)
[2023-12-25] MEDS: ceFAZolin 1GM VL ONE (13:07)
[2023-12-26] VITALS (7 sets, daily range): BP systolic 98–124; BP diastolic 60–72; PULSE 70–77; RESP 16–18; TEMP 98.3–98.9; O2SAT 95–98
[2023-12-26] MEDS ORDERED: cefTRIAXone 1GM/50ML D5W 50 ML IV SCH (09:00)
[2023-12-26 20:55] LABS: Urine WBC None Seen /hpf (0 - 5)
[2023-12-26 21:06] LABS: Urine Bacteria NONE SEEN /hpf (None Seen); Urine Blood Negative /uL (Negative); Urine Clarity Clear (Clear); Urine Protein, UAD Negative (Negative); Urine Specific Gravity 1.015 (1.001-1.035); Urine Urobilinogen Normal (Negative); Urine pH 6.5 (5.0-8.0)
[2023-12-26 21:31] LABS: Urine Color STRAW (Yellow)
[2023-12-27] VITALS (7 sets, daily range): BP systolic 104–120; BP diastolic 51–62; PULSE 71–104; RESP 16–20; TEMP 98.3–100.5; O2SAT 93–97
[2023-12-28] VITALS (8 sets, daily range): BP systolic 92–135; BP diastolic 54–71; PULSE 64–77; RESP 14–19; TEMP 98–99; O2SAT 95–98
[2023-12-28 03:34] LABS: Urine Bacteria NONE SEEN /hpf (None Seen); Urine Blood Negative /uL (Negative); Urine Clarity Clear (Clear); Urine Protein, UAD Negative (Negative); Urine Specific Gravity 1.018 (1.001-1.035); Urine Urobilinogen Normal (Negative); Urine WBC <1 /hpf (0 - 5)
[2023-12-28 03:35] LABS: Urine Color STRAW (Yellow)
[2023-12-29] VITALS (7 sets, daily range): BP systolic 103–118; BP diastolic 60–74; PULSE 74–77; RESP 16–20; TEMP 98.1–99.7; O2SAT 96–99
[2023-12-30] VITALS (7 sets, daily range): BP systolic 100–124; BP diastolic 52–78; PULSE 75–76; RESP 16–18; TEMP 98.1–99.2; O2SAT 96–99
[2023-12-31 05:00] VITALS: BP 116/60; PULSE 76; RESP 18; TEMP 98.3; O2SAT 97
[2023-12-31 08:00] VITALS: BP 116/72; PULSE 75; PULSE 76; RESP 18; TEMP 98.4; O2SAT 97; O2SAT 98
[2023-12-31 13:00] VITALS: BP 109/56; PULSE 68; RESP 18; TEMP 97.9; O2SAT 97
[2023-12-31 15:41] LABS: Basophils # (auto) 0 10 ^3/uL (0-0.2); Basophils % (auto) 0.8 % (0.0-2.0); Eosinophils # (auto) 0.1 10 ^3/uL (0-0.8); Eosinophils % (auto) 0.9 % (0.0-7.0); Hematocrit 34.6 % (36.0-46.0); Hemoglobin 11.2 g/dL (12.2-16.2); Lymphocytes # (auto) 1.1 10 ^3/uL (0.4-5.4); Lymphocytes % (auto) 18.8 % (10.0-50.0); Mean Corpuscular Hemoglobin 31.3 pg (28.0-32.0); Mean Corpuscular Hgb Conc. 32.4 g/dL (32.0-36.0); Mean Corpuscular Volume 96.5 fL (80.0-100.0); Monocytes # (auto) 0.6 10 ^3/uL (0-1.3); Monocytes % (auto) 10.1 % (0.0-12.0); Neutrophils % (auto) 69.4 % (37.0-80.0); Nucleated Red Blood Cells % 0.1 %; Red Blood Cells 3.58 10^6/uL (4.0-5.20); Red Cell Distribution Width 14.4 % (11.8-14.3); White Blood Cell 5.8 10^3/uL (4.4-10.8)
[2023-12-31 15:45] LABS: Chloride 104 mmol/L (98-107); Potassium 4.7 mmol/L (3.5-5.1); Sodium 136 mmol/L (136-145)
[2023-12-31 15:46] LABS: Anion Gap 3 (5-15); Calcium 9.1 mg/dL (8.5-10.1); Carbon Dioxide 29 mmol/L (20-30)
[2023-12-31 15:51] LABS: BUN/Creatinine Ratio 21.3 (10.0-20.0); Blood Urea Nitrogen 23 mg/dL (9-23); Glucose 94 mg/dL (74-106)
[2023-12-31 16:18] VITALS: BP 116/72; TEMP 36.6
[2023-12-31 17:00] VITALS: BP 101/53; PULSE 76; RESP 18; TEMP 98.1; O2SAT 98
== END 2023-12-31 19:40 | disposition home health service (06) | DRG 315 ==
LOC: EDBD 17:16 → ER 17:16 → TELE 19:41 → TELE-WESTW 19:41
PROVIDERS: ADMIT Nurse Practitioner Family; ATTEND Internal Medicine Cardiovascular Disease
PROC: 0J963ZZ Drainage of Chest Subcutaneous Tissue and Fascia, Percutaneous Approach (ICD-10-PCS; principal; 2023-12-25)
DX: T82.837A Hemorrhage due to cardiac prosthetic devices, implants and grafts, initial encounter (principal); I42.0 Dilated cardiomyopathy; I50.22 Chronic systolic (congestive) heart failure; L76.32 Postprocedural hematoma of skin and subcutaneous tissue following other procedure; Y83.8 Other surgical procedures as the cause of abnormal reaction of the patient, or of later complication, without mention of misadventure at the time of the procedure; I49.3 Ventricular premature depolarization; I11.0 Hypertensive heart disease with heart failure; I48.91 Unspecified atrial fibrillation; I95.9 Hypotension, unspecified; Y82.8 Other medical devices associated with adverse incidents; I49.5 Sick sinus syndrome; E86.9 Volume depletion, unspecified; Z90.710 Acquired absence of both cervix and uterus; Z95.810 Presence of automatic (implantable) cardiac defibrillator; Z86.73 Personal history of transient ischemic attack (TIA), and cerebral infarction without residual deficits; Y92.89 Other specified places as the place of occurrence of the external cause
CPT/HCPCS: 36415; 70450; 71045; 80048; 80053; 81001; 83880; 85007; 85025; 85027; 85610; 85730; 86850; 86900; 86901; 87081; 93005; 97110; 97116; 97163; 97530; 99152; 99153; G0378; J0690; J2250

== ENCOUNTER 2024-03-26 06:14 | Inpatient (IN) | payer OTHER, MEDICAID ==
[~2024-03-26] VITALS: Ht 170.2 cm; Wt 55.0 kg
[2024-03-26 08:00] LABS: Basophils # (auto) 0.1 10 ^3/uL (0-0.2); Basophils % (auto) 0.9 % (0.0-2.0); Eosinophils # (auto) 0 10 ^3/uL (0-0.8); Eosinophils % (auto) 0.2 % (0.0-7.0); Hematocrit 41.1 % (36.0-46.0); Hemoglobin 13.1 g/dL (12.2-16.2); Lymphocytes # (auto) 1.5 10 ^3/uL (0.4-5.4); Lymphocytes % (auto) 18.7 % (10.0-50.0); Mean Corpuscular Hemoglobin 29.7 pg (28.0-32.0); Mean Corpuscular Hgb Conc. 31.9 g/dL (32.0-36.0); Mean Corpuscular Volume 93.3 fL (80.0-100.0); Monocytes # (auto) 0.6 10 ^3/uL (0-1.3); Monocytes % (auto) 6.8 % (0.0-12.0); Neutrophils % (auto) 73.4 % (37.0-80.0); Nucleated Red Blood Cells % 0.2 %; Red Blood Cells 4.41 10^6/uL (4.0-5.20); Red Cell Distribution Width 15.1 % (11.8-14.3); White Blood Cell 8.2 10^3/uL (4.4-10.8)
[2024-03-26 08:06] LABS: Chloride 112 mmol/L (98-107); Potassium 5.2 mmol/L (3.5-5.1); Sodium 142 mmol/L (136-145)
[2024-03-26 08:07] LABS: Anion Gap 6 (5-15); Calcium 8.8 mg/dL (8.5-10.1); Carbon Dioxide 24 mmol/L (20-30)
[2024-03-26 08:12] LABS: BUN/Creatinine Ratio 15.7 (10.0-20.0); Blood Urea Nitrogen 20 mg/dL (9-23); Glucose 97 mg/dL (74-106)
[2024-03-26 09:00] LABS: INR 1.23 (0.9-1.15); Prothrombin Time 12.8 sec (9.3-11.8)
[2024-03-26] MEDS: ASPirin 81 mg TAB PO ONE (09:37)
[2024-03-26] MEDS: Alendronate Sodium 70 MG PO SCH (09:45)
[2024-03-26] MEDS ORDERED: PATIENTS OWN MEDICATION (Metoprolol Succinate (Metoprolol Succinate Er) 1 TAB) PO SCH (10:00)
[2024-03-26] MEDS ORDERED: OLANZAPINE 2.5 MG PO SCH (10:00)
[2024-03-26] MEDS ORDERED: PATIENTS OWN MEDICATION (Flecainide Acetate 100 MG) PO SCH (10:00)
[2024-03-26] MEDS: FUROSEMIDE 40 MG/4 ML VIAL IV ONE (10:04)
[2024-03-26 11:00] LABS: COVID19 ANTIGEN SOFIA FIA NEGATIVE (NEGATIVE)
[2024-03-26] MEDS ORDERED: DEXTROSE (50%) 50ML SYRG IV PRN (11:00)
[2024-03-26] MEDS: InsuLIN REG 1unit/0.01ml Soln (100units/ml) SC SCH ×2 (11:30→22:00)
[2024-03-26] MEDS: ACCU-CHEK COMFORT CURVE STRIP VI SCH (11:46)
[2024-03-26] MEDS: CLOPIDOGREL BISULFATE 75 MG TAB PO SCH (11:59)
[2024-03-26] MEDS: SPIRONOLACTONE 25 MG TAB PO SCH (12:00)
[2024-03-26] MEDS: FLUoxetine HCL 20 MG CAP PO SCH (12:01)
[2024-03-26] MEDS: FUROSEMIDE 20 MG/2 ML VIAL IV SCH (12:02)
[2024-03-26] MEDS: FUROSEMIDE 40 MG/4 ML VIAL IV SCH (19:36)
[2024-03-26] MEDS ORDERED: FLECAINIDE ACETATE 50 MG TAB PO SCH (22:00)
[2024-03-26] MEDS ORDERED: ATORVASTATIN 20 MG TAB PO SCH (22:00)
[2024-03-26] MEDS: APIXABAN 2.5 MG TAB PO SCH (22:00)
[2024-03-26] MEDS: CARVEDILOL 3.125 MG TAB PO SCH (22:13)
[2024-03-26] MEDS: AMIODARONE HCL 200 MG TAB PO SCH (22:14)
[2024-03-27] VITALS (11 sets, daily range): BP systolic 93–134; BP diastolic 50–90; PULSE 30–90; RESP 14–18; TEMP 97.6–98.5; O2SAT 92–97
[2024-03-27] MEDS: EMPAGLIFLOZIN 10 MG TAB PO SCH (06:30)
[2024-03-27] MEDS: SACUBITRIL-VALSARTAN 24mg/26mg TAB PO SCH (08:34)
[2024-03-27] MEDS ORDERED: [UNRECOGNIZED DRUG - CODE] PO (09:28)
[2024-03-27] MEDS ORDERED: FLUO40CA PO (09:28)
[2024-03-27] MEDS ORDERED: SACU1TAB PO (09:29)
[2024-03-27] MEDS ORDERED: TRAZ1TAB12 PO (09:30)
[2024-03-27] MEDS ORDERED: ASPI81CH59 PO (09:32)
[2024-03-27] MEDS ORDERED: AMIO400T3 PO (09:32)
[2024-03-27] MEDS ORDERED: OLANZAPINE 2.5 MG PO SCH (10:00)
[2024-03-27] MEDS ORDERED: METOPROLOL SUCCINATE XL 50 MG TAB PO SCH (10:00)
[2024-03-27 10:07] LABS: Basophils # (auto) 0.1 10 ^3/uL (0-0.2); Basophils % (auto) 0.6 % (0.0-2.0); Eosinophils # (auto) 0 10 ^3/uL (0-0.8); Eosinophils % (auto) 0.3 % (0.0-7.0); Hematocrit 43.7 % (36.0-46.0); Hemoglobin 13.7 g/dL (12.2-16.2); Lymphocytes % (auto) 9.3 % (10.0-50.0); Mean Corpuscular Hemoglobin 29.9 pg (28.0-32.0); Mean Corpuscular Hgb Conc. 31.4 g/dL (32.0-36.0); Mean Corpuscular Volume 95.1 fL (80.0-100.0); Monocytes # (auto) 0.7 10 ^3/uL (0-1.3); Monocytes % (auto) 6.5 % (0.0-12.0); Neutrophils # (auto) 9.4 10 ^3/uL (1.6-8.6); Neutrophils % (auto) 83.3 % (37.0-80.0); Nucleated Red Blood Cells % 0.1 %; Red Blood Cells 4.59 10^6/uL (4.0-5.20); Red Cell Distribution Width 15.2 % (11.8-14.3); White Blood Cell 11.3 10^3/uL (4.4-10.8)
[2024-03-27 10:44] LABS: Alanine Aminotransferase 101 U/L (7-40); Albumin 3.4 g/dL (3.2-4.8); Alkaline Phosphatase 140 U/L (46-116); Anion Gap 7 (5-15); Aspartate Aminotransferase 75 U/L (13-40); BUN/Creatinine Ratio 13.5 (10.0-20.0); Blood Urea Nitrogen 18 mg/dL (9-23); Calcium 9.3 mg/dL (8.5-10.1); Carbon Dioxide 29 mmol/L (20-30); Chloride 108 mmol/L (98-107); Glucose 88 mg/dL (74-106); Sodium 144 mmol/L (136-145)
[2024-03-27 10:45] LABS: Bilirubin, Total 0.6 mg/dL (0.2-1.0); Total Protein 5.8 g/dL (5.7-8.2)
[2024-03-28] VITALS (8 sets, daily range): BP systolic 90–143; BP diastolic 57–91; PULSE 50–76; RESP 16–18; TEMP 97.4–97.8; O2SAT 94–99
[2024-03-29] MEDS ORDERED: DAPA1TAB4 PO (00:15)
[2024-03-29] MEDS ORDERED: NITR100C6 PO (00:15)
[2024-03-29 08:00] VITALS: BP 137/88; PULSE 67; PULSE 75; RESP 18; RESP 19; TEMP 98.4
[2024-03-29 08:48] VITALS: BP 127/99; PULSE 76; RESP 19; TEMP 97.6; O2SAT 97
[2024-03-29 12:43] VITALS: BP 97/60; PULSE 76; RESP 18; TEMP 97.4; O2SAT 100
[2024-03-29 16:59] VITALS: BP 92/48; PULSE 75; RESP 18; TEMP 97.7; O2SAT 97
[2024-03-29 20:00] VITALS: BP 137/88; PULSE 67; PULSE 75; RESP 16; RESP 18; TEMP 98.4
[2024-03-29 21:00] VITALS: BP 91/51; PULSE 70; RESP 17; TEMP 98; O2SAT 95
[2024-03-30 01:00] VITALS: BP 113/68; PULSE 75; RESP 17; TEMP 98; O2SAT 100
[2024-03-30 05:00] VITALS: BP 126/86; PULSE 75; RESP 17; TEMP 98.1; O2SAT 96
[2024-03-30 08:00] VITALS: BP 124/84; PULSE 75; RESP 16; RESP 18; TEMP 97.8
[2024-03-30 08:50] VITALS: BP 124/84; PULSE 58; RESP 16; TEMP 97.8; O2SAT 92
[2024-03-30] MEDS ORDERED: APIX2.5T PO (09:21)
[2024-03-30 10:21] VITALS: BP 124/84; PULSE 75; RESP 18; TEMP 97.8; O2SAT 92
== END 2024-03-30 13:00 | disposition home or self-care (01) | DRG 291 ==
LOC: ER 06:14 → TELE-CENTR 10:41 → TELE 10:41 → TELE-CENTR 23:52
PROVIDERS: ADMIT Nurse Practitioner Family; ATTEND Family Medicine
DX: I13.0 Hypertensive heart and chronic kidney disease with heart failure and stage 1 through stage 4 chronic kidney disease, or unspecified chronic kidney disease (principal); I50.23 Acute on chronic systolic (congestive) heart failure; N17.9 Acute kidney failure, unspecified; I42.8 Other cardiomyopathies; E11.65 Type 2 diabetes mellitus with hyperglycemia; I48.0 Paroxysmal atrial fibrillation; N18.31 Chronic kidney disease, stage 3a; Z51.5 Encounter for palliative care; E11.22 Type 2 diabetes mellitus with diabetic chronic kidney disease; S02.2XXA Fracture of nasal bones, initial encounter for closed fracture; Z20.822 Contact with and (suspected) exposure to COVID-19; I27.20 Pulmonary hypertension, unspecified; F31.9 Bipolar disorder, unspecified; E05.80 Other thyrotoxicosis without thyrotoxic crisis or storm; W18.39XA Other fall on same level, initial encounter; Y92.238 Other place in hospital as the place of occurrence of the external cause; Z90.710 Acquired absence of both cervix and uterus; Z86.73 Personal history of transient ischemic attack (TIA), and cerebral infarction without residual deficits; Z95.0 Presence of cardiac pacemaker; Z79.01 Long term (current) use of anticoagulants; Y93.89 Activity, other specified; Y99.8 Other external cause status
CPT/HCPCS: 36415; 70486; 71045; 80048; 80053; 82962; 83880; 84132; 84484; 85025; 85610; 87426; 93005; 93306; 96374; G0378; J1815

== ENCOUNTER 2024-05-14 19:15 | Inpatient (IN) | payer OTHER, MEDICAID ==
[~2024-05-14] VITALS: Ht 170.2 cm; Wt 47.5 kg
[~2024-05-14 19:15] MED LIST changes: +AMIO400T3 PO; +APIX2.5T PO; +ASPI81CH59 PO; +DAPA1TAB4 PO; -FLUO20CA90 PO; +FLUO40CA PO; +NITR100C6 PO; -OLAN2.5T38 PO; -TRAZ-228 PO; +TRAZ1TAB12 PO; +[UNRECOGNIZED DRUG - CODE] PO
[2024-05-14 22:49] LABS: Basophils # (auto) 0.1 10 ^3/uL (0-0.2); Basophils % (auto) 0.9 % (0.0-2.0); Eosinophils # (auto) 0 10 ^3/uL (0-0.8); Eosinophils % (auto) 0.2 % (0.0-7.0); Hematocrit 44.4 % (36.0-46.0); Hemoglobin 14.1 g/dL (12.2-16.2); Lymphocytes # (auto) 1.2 10 ^3/uL (0.4-5.4); Lymphocytes % (auto) 20.6 % (10.0-50.0); Mean Corpuscular Hemoglobin 28.2 pg (28.0-32.0); Mean Corpuscular Hgb Conc. 31.9 g/dL (32.0-36.0); Mean Corpuscular Volume 88.5 fL (80.0-100.0); Monocytes # (auto) 0.4 10 ^3/uL (0-1.3); Monocytes % (auto) 6.6 % (0.0-12.0); Neutrophils # (auto) 4.2 10 ^3/uL (1.6-8.6); Neutrophils % (auto) 71.7 % (37.0-80.0); Nucleated Red Blood Cells % 0.4 %; Red Blood Cells 5.02 10^6/uL (4.0-5.20); Red Cell Distribution Width 18.8 % (11.8-14.3); White Blood Cell 5.9 10^3/uL (4.4-10.8)
[2024-05-14 22:58] LABS: Alanine Aminotransferase 96 U/L (7-40); Albumin 3.7 g/dL (3.2-4.8); Alkaline Phosphatase 272 U/L (46-116); Anion Gap 7 (5-15); Aspartate Aminotransferase 74 U/L (13-40); Bilirubin, Total 0.9 mg/dL (0.2-1.0); Blood Urea Nitrogen 40 mg/dL (9-23); Calcium 9.6 mg/dL (8.7-10.4); Carbon Dioxide 26 mmol/L (20-30); Chloride 112 mmol/L (98-107); Glucose 102 mg/dL (74-106); Potassium 4.6 mmol/L (3.5-5.1); Sodium 145 mmol/L (136-145); Total Protein 6.5 g/dL (5.7-8.2)
[2024-05-15] VITALS (10 sets, daily range): BP systolic 101–118; BP diastolic 69–84; PULSE 69–76; RESP 14–18; TEMP 97.3–98; O2SAT 90–99
[2024-05-15] MEDS ORDERED: MORPHINE SULFATE INJ 2 MG/ml SYRG IV PRN (03:15)
[2024-05-15] MEDS ORDERED: NITROGLYCERIN 0.4 MG SL TAB SL PRN (03:15)
[2024-05-15] MEDS ORDERED: DEXTROSE (50%) 50ML SYRG IV PRN (03:15)
[2024-05-15 04:15] LABS: Urine Bacteria None Seen /hpf (None Seen)
[2024-05-15] MEDS: FUROSEMIDE 100 MG/10ML VIAL IV ONE (04:22)
[2024-05-15] MEDS: AZITHROMYCIN 500MG/ 250ML 250 ML IV ONE (04:23)
[2024-05-15 04:46] LABS: Urine Amorphous Crystal FEW /hpf (None Seen); Urine Blood Negative /uL (Negative); Urine Clarity Turbid (Clear); Urine Color Yellow (Yellow); Urine Hyaline Cast MANY /lpf (0 - 2); Urine Mucus FEW (None Seen); Urine Protein, UAD 2+ (Negative); Urine Specific Gravity 1.027 (1.001-1.035); Urine Urobilinogen 2 mg/dL (Negative); Urine WBC 6 /hpf (0 - 5); Urine pH 5.5 (5.0-9.0)
[2024-05-15] MEDS: FUROSEMIDE 20 MG/2 ML VIAL IV SCH (06:19)
[2024-05-15] MEDS: ACCU-CHEK COMFORT CURVE STRIP VI SCH (06:53)
[2024-05-15] MEDS: InsuLIN REG 1unit/0.01ml Soln (100units/ml) SC SCH ×2 (06:56→21:50)
[2024-05-15] MEDS: CLOPIDOGREL BISULFATE 75 MG TAB PO SCH (15:05)
[2024-05-15] MEDS: ASPirin 81 mg TAB PO SCH (15:06)
[2024-05-15] MEDS: METOPROLOL SUCCINATE XL 50 MG TAB PO SCH (15:06)
[2024-05-15] MEDS: APIXABAN 2.5 MG TAB PO SCH (15:07)
[2024-05-15] MEDS: AMIODARONE HCL 200 MG TAB PO SCH (15:07)
[2024-05-15] MEDS: ATORVASTATIN 20 MG TAB PO SCH (21:47)
[2024-05-16] VITALS (10 sets, daily range): BP systolic 92–110; BP diastolic 59–88; PULSE 57–77; RESP 16–20; TEMP 97.9–98.3; O2SAT 93–98
[2024-05-16] MEDS: AZITHROMYCIN 500MG/ 250ML 250 ML IV SCH (04:56)
[2024-05-16 07:59] LABS: Basophils # (auto) 0 10 ^3/uL (0-0.2); Basophils % (auto) 0.4 % (0.0-2.0); Eosinophils # (auto) 0 10 ^3/uL (0-0.8); Eosinophils % (auto) 0.6 % (0.0-7.0); Hematocrit 46.1 % (36.0-46.0); Hemoglobin 14.3 g/dL (12.2-16.2); Lymphocytes # (auto) 1.5 10 ^3/uL (0.4-5.4); Lymphocytes % (auto) 23.8 % (10.0-50.0); Mean Corpuscular Hgb Conc. 30.9 g/dL (32.0-36.0); Mean Corpuscular Volume 90.7 fL (80.0-100.0); Monocytes # (auto) 0.5 10 ^3/uL (0-1.3); Monocytes % (auto) 7.9 % (0.0-12.0); Neutrophils # (auto) 4.4 10 ^3/uL (1.6-8.6); Neutrophils % (auto) 67.3 % (37.0-80.0); Nucleated Red Blood Cells % 0.2 %; Red Blood Cells 5.09 10^6/uL (4.0-5.20); Red Cell Distribution Width 18.8 % (11.8-14.3); White Blood Cell 6.5 10^3/uL (4.4-10.8)
[2024-05-16 08:53] LABS: Alanine Aminotransferase 73 U/L (7-40); Alkaline Phosphatase 222 U/L (46-116); Anion Gap 9 (5-15); Aspartate Aminotransferase 50 U/L (13-40); BUN/Creatinine Ratio 25.7 (10.0-20.0); Blood Urea Nitrogen 47 mg/dL (9-23); Calcium 8.6 mg/dL (8.5-10.1); Carbon Dioxide 27 mmol/L (20-30); Chloride 106 mmol/L (98-107); Glucose 290 mg/dL (74-106); Sodium 142 mmol/L (136-145)
[2024-05-16 08:54] LABS: Bilirubin, Total 0.7 mg/dL (0.2-1.0)
[2024-05-16 15:12] LABS: Base Excess 2.1 mmol/L (-2.0-2.0)
[2024-05-17] VITALS (11 sets, daily range): BP systolic 90–97; BP diastolic 69–82; PULSE 75–76; RESP 18–32; TEMP 96.8–98.1; O2SAT 66–99
[2024-05-18] VITALS (9 sets, daily range): BP systolic 104–110; BP diastolic 46–87; PULSE 75–79; RESP 18–21; TEMP 96.9–97.8; O2SAT 95–97
[2024-05-19] VITALS (14 sets, daily range): BP systolic 98–153; BP diastolic 51–79; PULSE 70–79; RESP 16–31; TEMP 97.5–99.7; O2SAT 93–97
[2024-05-19 11:03] LABS: Basophils # (auto) 0 10 ^3/uL (0-0.2); Basophils % (auto) 0.4 % (0.0-2.0); Eosinophils # (auto) 0 10 ^3/uL (0-0.8); Eosinophils % (auto) 0.1 % (0.0-7.0); Hemoglobin 12.8 g/dL (12.2-16.2); Lymphocytes # (auto) 0.8 10 ^3/uL (0.4-5.4); Lymphocytes % (auto) 9.2 % (10.0-50.0); Mean Corpuscular Hemoglobin 28.4 pg (28.0-32.0); Mean Corpuscular Hgb Conc. 32.9 g/dL (32.0-36.0); Mean Corpuscular Volume 86.4 fL (80.0-100.0); Monocytes # (auto) 0.6 10 ^3/uL (0-1.3); Monocytes % (auto) 7.7 % (0.0-12.0); Neutrophils % (auto) 82.6 % (37.0-80.0); Nucleated Red Blood Cells % 0.1 %; Red Blood Cells 4.51 10^6/uL (4.0-5.20); Red Cell Distribution Width 18.4 % (11.8-14.3); White Blood Cell 8.5 10^3/uL (4.4-10.8)
[2024-05-19 11:12] LABS: Alanine Aminotransferase 62 U/L (7-40); Alkaline Phosphatase 228 U/L (46-116); Anion Gap 6 (5-15); BUN/Creatinine Ratio 24.3 (10.0-20.0); Blood Urea Nitrogen 28 mg/dL (9-23); Calcium 8.9 mg/dL (8.5-10.1); Carbon Dioxide 30 mmol/L (20-30); Chloride 109 mmol/L (98-107); Glucose 110 mg/dL (74-106); Potassium 3.4 mmol/L (3.5-5.1); Sodium 145 mmol/L (136-145)
[2024-05-19 11:14] LABS: Albumin 3.2 g/dL (3.2-4.8); Aspartate Aminotransferase 53 U/L (13-40); Bilirubin, Total 0.9 mg/dL (0.2-1.0); Total Protein 5.5 g/dL (5.7-8.2)
[2024-05-19] MEDS: Nepro With Carbsteady ButterPecan 8oz Carton PO SCH (12:00)
[2024-05-19] MEDS ORDERED: Ensure HIGH Protein Chocolate 8oz Bottle PO SCH (12:00)
[2024-05-19] MEDS: ALBUTEROL SULF 2.5 MG/0.5ML(0.5%) NEB SOLN NEB PRN (15:54)
[2024-05-20] VITALS (11 sets, daily range): BP systolic 75–110; BP diastolic 45–73; PULSE 61–80; RESP 18–25; TEMP 98–100.6; O2SAT 93–98
[2024-05-20] MEDS: FUROSEMIDE 20 MG/2 ML VIAL IV ONE (07:50)
[2024-05-20] MEDS: ACETAMINOPHEN 325 MG TAB PO PRN (07:51)
[2024-05-20] MEDS ORDERED: BUSP5TAB51 PO (10:37)
[2024-05-20] MEDS: ALBUMIN 25% 100 ML IV ONE ×2 (13:00→14:10)
[2024-05-20] MEDS: MILRINONE 20MG/100ML 100 ML IV SCH (14:58)
[2024-05-21] VITALS (9 sets, daily range): BP systolic 90–134; BP diastolic 50–75; PULSE 70–79; RESP 18–28; TEMP 97.2–99.8; O2SAT 92–97
[2024-05-21] MEDS ORDERED: BISACODYL 10 MG RECT SUPP PR PRN ×2 (14:30→18:45)
[2024-05-21] MEDS: BISACODYL 10 MG RECT SUPP PR PRN (18:27)
[2024-05-22] VITALS (14 sets, daily range): BP systolic 100–150; BP diastolic 49–86; PULSE 75–121; RESP 17–24; TEMP 97.2–98.6; O2SAT 75–96
[2024-05-22 10:03] LABS: Chloride 108 mmol/L (98-107); Potassium 3.1 mmol/L (3.5-5.1); Sodium 144 mmol/L (136-145)
[2024-05-22 10:04] LABS: Anion Gap 6 (5-15); Calcium 8.7 mg/dL (8.5-10.1); Carbon Dioxide 30 mmol/L (20-30)
[2024-05-22 10:09] LABS: BUN/Creatinine Ratio 45.7 (10.0-20.0); Blood Urea Nitrogen 37 mg/dL (9-23); Glucose 88 mg/dL (74-106)
[2024-05-23] VITALS (10 sets, daily range): BP systolic 118–140; BP diastolic 76–99; PULSE 75–84; RESP 16–22; TEMP 98–99.4; O2SAT 90–94
[2024-05-23] MEDS: POTASSIUM EFFERVESENT TAB 25 MEQ GT ONE (13:45)
[2024-05-23 15:12] LABS: Chloride 107 mmol/L (98-107); Sodium 144 mmol/L (136-145)
[2024-05-23 15:13] LABS: Anion Gap 7 (5-15); Calcium 9.1 mg/dL (8.5-10.1); Carbon Dioxide 30 mmol/L (20-30)
[2024-05-23 15:18] LABS: Glucose 124 mg/dL (74-106)
[2024-05-23 15:21] LABS: Blood Urea Nitrogen 27 mg/dL (9-23)
[2024-05-23] MEDS: FUROSEMIDE 20 MG TAB PO SCH (19:18)
[2024-05-24] VITALS (52 sets, daily range): BP systolic 81–141; BP diastolic 42–99; PULSE 75–98; RESP 15–49; TEMP 95.9–101.1; O2SAT 87–100
[2024-05-24] MEDS: FUROSEMIDE 40 MG/4 ML VIAL IV ONE (09:45)
[2024-05-24] MEDS: POTASSIUM EFFERVESENT TAB 25 MEQ GT SCH (10:00)
[2024-05-24] MEDS: SPIRONOLACTONE 25 MG TAB PO SCH (10:00)
[2024-05-24] MEDS ORDERED: ACETAMINOPHEN 650 mg PER 20.3 mL UD PO PRN (10:15)
[2024-05-24] MEDS ORDERED: POTASSIUM CHL 20MEQ/100ML 100 ML IV ONE (10:30)
[2024-05-24] MEDS: POTASSIUM CHL 20MEQ/100ML 100 ML IV SCH (10:30)
[2024-05-24 10:39] LABS: Base Excess 5.3 mmol/L (-2.0-2.0)
[2024-05-24 11:25] LABS: Basophils # (auto) 0 10 ^3/uL (0-0.2); Basophils % (auto) 0.3 % (0.0-2.0); Eosinophils # (auto) 0 10 ^3/uL (0-0.8); Hematocrit 38.5 % (36.0-46.0); Hemoglobin 12.6 g/dL (12.2-16.2); Lymphocytes # (auto) 0.6 10 ^3/uL (0.4-5.4); Lymphocytes % (auto) 5.1 % (10.0-50.0); Mean Corpuscular Hgb Conc. 32.9 g/dL (32.0-36.0); Mean Corpuscular Volume 85.3 fL (80.0-100.0); Monocytes # (auto) 0.8 10 ^3/uL (0-1.3); Monocytes % (auto) 6.1 % (0.0-12.0); Neutrophils # (auto) 10.9 10 ^3/uL (1.6-8.6); Neutrophils % (auto) 88.5 % (37.0-80.0); Nucleated Red Blood Cells % 0.1 %; Red Blood Cells 4.51 10^6/uL (4.0-5.20); Red Cell Distribution Width 19.3 % (11.8-14.3); White Blood Cell 12.3 10^3/uL (4.4-10.8)
[2024-05-24 11:42] LABS: Alanine Aminotransferase 54 U/L (7-40); Albumin 3.8 g/dL (3.2-4.8); Alkaline Phosphatase 219 U/L (46-116); Anion Gap 9 (5-15); Aspartate Aminotransferase 46 U/L (13-40); BUN/Creatinine Ratio 31.9 (10.0-20.0); Blood Urea Nitrogen 30 mg/dL (9-23); Calcium 9.5 mg/dL (8.5-10.1); Carbon Dioxide 27 mmol/L (20-30); Chloride 107 mmol/L (98-107); Glucose 110 mg/dL (74-106); Potassium 3.6 mmol/L (3.5-5.1); Sodium 143 mmol/L (136-145)
[2024-05-24 11:43] LABS: Bilirubin, Total 1.4 mg/dL (0.2-1.0); Total Protein 6.4 g/dL (5.7-8.2)
[2024-05-24] MEDS: MILRINONE 20MG/100ML 100 ML IV SCH (12:25)
[2024-05-24] MEDS: MIDAZOLAM HCL 2MG/2ML 2ml VIAL (1mg/ml) ONE (12:46)
[2024-05-24] MEDS: PROPOFOL 100 ML IV ONE (12:48)
[2024-05-24] MEDS: NOREPINEPHRINE 8 MG/250ML KIT 250 ML IV ONE (12:49)
[2024-05-24] MEDS: MIDAZOLAM HCL 5 MG/ML-1ML VIAL ONE (12:50)
[2024-05-24] MEDS: ETOMIDATE (2MG/ML) 20ML VIAL IV ONE (12:52)
[2024-05-24] MEDS: ROCURONIUM 10MG/ML 10ML VIAL IV ONE (12:52)
[2024-05-24] MEDS: MIDAZOLAM DRIP 50 mg/50mL 50 ML IV ONE (14:08)
[2024-05-24] MEDS: fentaNYL Drip 2500mCg/250mlNS 250 ML IV ONE (14:13)
[2024-05-24] MEDS: MIDAZOLAM DRIP 50 mg/50mL 50 ML IV SCH (14:19)
[2024-05-24] MEDS: fentaNYL Drip 2500mCg/250mlNS 250 ML IV SCH (14:23)
[2024-05-24 14:50] LABS: Lactic Acid w/Reflex 3.2 mmol/L (0.4-2.0)
[2024-05-24] MEDS: NOREPINEPHRINE 8 MG/250ML KIT 250 ML IV SCH (16:05)
[2024-05-24 16:21] LABS: Base Excess 5.6 mmol/L (-2.0-2.0)
[2024-05-24] MEDS: FUROSEMIDE 40 MG TAB PO SCH (16:41)
[2024-05-24] MEDS: POTASSIUM CHL 20MEQ/100ML 200 ML IV ONE (16:48)
[2024-05-24] MEDS: BUMETANIDE 2.5mg/10ml (0.25 mg/ml) INJ IV ONE (17:02)
[2024-05-24 21:17] LABS: Base Excess 3.2 mmol/L (-2.0-2.0)
[2024-05-25] VITALS (112 sets, daily range): BP systolic 80–112; BP diastolic 47–73; PULSE 84–109; RESP 13–21; TEMP 95.4–99.1; O2SAT 91–99
[2024-05-25 00:56] LABS: Hematocrit 35.1 % (36.0-46.0); Hemoglobin 11.3 g/dL (12.2-16.2)
[2024-05-25 04:18] LABS: Basophils # (auto) 0 10 ^3/uL (0-0.2); Basophils % (auto) 0.3 % (0.0-2.0); Eosinophils # (auto) 0 10 ^3/uL (0-0.8); Eosinophils % (auto) 0.1 % (0.0-7.0); Hematocrit 35.7 % (36.0-46.0); Hemoglobin 11.3 g/dL (12.2-16.2); Lymphocytes # (auto) 0.8 10 ^3/uL (0.4-5.4); Lymphocytes % (auto) 5.8 % (10.0-50.0); Mean Corpuscular Hgb Conc. 31.8 g/dL (32.0-36.0); Monocytes # (auto) 0.9 10 ^3/uL (0-1.3); Monocytes % (auto) 6.7 % (0.0-12.0); Neutrophils # (auto) 11.4 10 ^3/uL (1.6-8.6); Neutrophils % (auto) 87.1 % (37.0-80.0); White Blood Cell 13.1 10^3/uL (4.4-10.8)
[2024-05-25 04:22] LABS: Anion Gap 6 (5-15); Carbon Dioxide 30 mmol/L (20-30); Chloride 109 mmol/L (98-107); Potassium 3.4 mmol/L (3.5-5.1); Sodium 145 mmol/L (136-145)
[2024-05-25 04:23] LABS: Calcium 9.3 mg/dL (8.7-10.4)
[2024-05-25 04:28] LABS: BUN/Creatinine Ratio 34.5 (10.0-20.0); Blood Urea Nitrogen 38 mg/dL (9-23); Glucose 120 mg/dL (74-106)
[2024-05-25] MEDS: FUROSEMIDE 40 MG/4 ML VIAL IV SCH (06:13)
[2024-05-25 07:34] LABS: Base Excess 2.5 mmol/L (-2.0-2.0)
[2024-05-25] MEDS: FUROSEMIDE INJECTION 100 MG in D5W 5% 100 ML IV SCH (08:43)
[2024-05-26] VITALS (108 sets, daily range): BP systolic 86–126; BP diastolic 62–88; PULSE 84–113; RESP 12–18; TEMP 97–99.7; O2SAT 91–100
[2024-05-26 03:58] LABS: Basophils # (auto) 0 10 ^3/uL (0-0.2); Basophils % (auto) 0.2 % (0.0-2.0); Eosinophils # (auto) 0.2 10 ^3/uL (0-0.8); Eosinophils % (auto) 1.7 % (0.0-7.0); Hematocrit 37.4 % (36.0-46.0); Hemoglobin 12.1 g/dL (12.2-16.2); Lymphocytes # (auto) 0.8 10 ^3/uL (0.4-5.4); Lymphocytes % (auto) 8.3 % (10.0-50.0); Mean Corpuscular Hemoglobin 27.7 pg (28.0-32.0); Mean Corpuscular Hgb Conc. 32.3 g/dL (32.0-36.0); Monocytes # (auto) 0.7 10 ^3/uL (0-1.3); Monocytes % (auto) 7.1 % (0.0-12.0); Neutrophils # (auto) 7.6 10 ^3/uL (1.6-8.6); Neutrophils % (auto) 82.7 % (37.0-80.0); Red Blood Cells 4.35 10^6/uL (4.0-5.20); White Blood Cell 9.2 10^3/uL (4.4-10.8)
[2024-05-26 04:15] LABS: Chloride 108 mmol/L (98-107); Potassium 3.6 mmol/L (3.5-5.1); Sodium 147 mmol/L (136-145)
[2024-05-26 04:16] LABS: Anion Gap 6 (5-15); Calcium 9.2 mg/dL (8.5-10.1); Carbon Dioxide 33 mmol/L (20-30)
[2024-05-26 04:21] LABS: BUN/Creatinine Ratio 38.5 (10.0-20.0); Blood Urea Nitrogen 37 mg/dL (9-23); Glucose 95 mg/dL (74-106)
[2024-05-26 06:58] LABS: Base Excess 8.4 mmol/L (-2.0-2.0)
[2024-05-26] MEDS: cefTRIAXone 1GM/50ML D5W 50 ML IV SCH (09:40)
[2024-05-27] VITALS (108 sets, daily range): BP systolic 90–133; BP diastolic 58–101; PULSE 74–110; RESP 10–40; TEMP 84.7–99.9; O2SAT 83–98
[2024-05-27 04:09] LABS: Basophils # (auto) 0 10 ^3/uL (0-0.2); Basophils % (auto) 0.3 % (0.0-2.0); Eosinophils # (auto) 0.1 10 ^3/uL (0-0.8); Eosinophils % (auto) 0.6 % (0.0-7.0); Hematocrit 40.4 % (36.0-46.0); Hemoglobin 13.1 g/dL (12.2-16.2); Lymphocytes # (auto) 0.8 10 ^3/uL (0.4-5.4); Lymphocytes % (auto) 7.2 % (10.0-50.0); Mean Corpuscular Hemoglobin 27.7 pg (28.0-32.0); Mean Corpuscular Hgb Conc. 32.5 g/dL (32.0-36.0); Monocytes # (auto) 0.7 10 ^3/uL (0-1.3); Monocytes % (auto) 6.2 % (0.0-12.0); Neutrophils # (auto) 9.1 10 ^3/uL (1.6-8.6); Neutrophils % (auto) 85.7 % (37.0-80.0); Nucleated Red Blood Cells % 0.1 %; Red Blood Cells 4.75 10^6/uL (4.0-5.20); Red Cell Distribution Width 19.1 % (11.8-14.3); White Blood Cell 10.6 10^3/uL (4.4-10.8)
[2024-05-27 04:20] LABS: Alanine Aminotransferase 31 U/L (7-40); Alkaline Phosphatase 163 U/L (46-116); Anion Gap 7 (5-15); BUN/Creatinine Ratio 36.6 (10.0-20.0); Blood Urea Nitrogen 34 mg/dL (9-23); Calcium 9.4 mg/dL (8.5-10.1); Carbon Dioxide 36 mmol/L (20-30); Chloride 104 mmol/L (98-107); Glucose 93 mg/dL (74-106); Potassium 4.2 mmol/L (3.5-5.1); Sodium 147 mmol/L (136-145)
[2024-05-27 04:21] LABS: Albumin 3.3 g/dL (3.2-4.8); Aspartate Aminotransferase 28 U/L (13-40); Bilirubin, Total 0.9 mg/dL (0.2-1.0); Total Protein 6.1 g/dL (5.7-8.2)
[2024-05-27 12:00] LABS: Base Excess 5.1 mmol/L (-2.0-2.0)
[2024-05-27] MEDS: LORazepam 2MG/ML-1ML VIAL IV PRN (17:36)
[2024-05-28] VITALS (101 sets, daily range): BP systolic 86–119; BP diastolic 55–91; PULSE 74–100; RESP 11–48; TEMP 88.5–100.6; O2SAT 86–100
[2024-05-28 04:11] LABS: Basophils # (auto) 0 10 ^3/uL (0-0.2); Basophils % (auto) 0.5 % (0.0-2.0); Eosinophils # (auto) 0 10 ^3/uL (0-0.8); Eosinophils % (auto) 0.5 % (0.0-7.0); Hematocrit 37.5 % (36.0-46.0); Hemoglobin 12.2 g/dL (12.2-16.2); Lymphocytes # (auto) 0.7 10 ^3/uL (0.4-5.4); Lymphocytes % (auto) 7.7 % (10.0-50.0); Mean Corpuscular Hemoglobin 27.6 pg (28.0-32.0); Mean Corpuscular Hgb Conc. 32.6 g/dL (32.0-36.0); Mean Corpuscular Volume 84.6 fL (80.0-100.0); Monocytes # (auto) 0.5 10 ^3/uL (0-1.3); Monocytes % (auto) 5.7 % (0.0-12.0); Neutrophils # (auto) 7.8 10 ^3/uL (1.6-8.6); Neutrophils % (auto) 85.6 % (37.0-80.0); Red Blood Cells 4.43 10^6/uL (4.0-5.20); Red Cell Distribution Width 19.5 % (11.8-14.3); White Blood Cell 9.1 10^3/uL (4.4-10.8)
[2024-05-28 04:21] LABS: Anion Gap 5 (5-15); Carbon Dioxide 38 mmol/L (20-30); Chloride 104 mmol/L (98-107); Sodium 147 mmol/L (136-145)
[2024-05-28 04:22] LABS: Calcium 10.2 mg/dL (8.7-10.4)
[2024-05-28 04:27] LABS: BUN/Creatinine Ratio 30.8 (10.0-20.0); Glucose 88 mg/dL (74-106)
[2024-05-28 04:58] LABS: Blood Urea Nitrogen 24 mg/dL (9-23)
[2024-05-28 08:15] LABS: Base Excess 7.1 mmol/L (-2.0-2.0)
[2024-05-28] MEDS: POTASSIUM CHL 20MEQ/100ML 100 ML IV SCH (11:38)
[2024-05-28 14:38] LABS: Base Excess 10.8 mmol/L (-2.0-2.0)
[2024-05-28 23:46] LABS: Base Excess 9.5 mmol/L (-2.0-2.0)
[2024-05-29] VITALS (71 sets, daily range): BP systolic 96–135; BP diastolic 57–113; PULSE 75–104; RESP 10–35; TEMP 97.5–100.8; O2SAT 94–100
[2024-05-29 00:31] LABS: Base Excess 8.2 mmol/L (-2.0-2.0)
[2024-05-29] MEDS ORDERED: ACETAMINOPHEN 120 MG RECT SUPP PR PRN (03:15)
[2024-05-29] MEDS: ACETAMINOPHEN 650 MG RECT SUPP PR ONE (03:20)
[2024-05-29] MEDS ORDERED: ACETAMINOPHEN 650 MG RECT SUPP PR PRN (03:30)
[2024-05-29 04:49] LABS: Chloride 105 mmol/L (98-107); Potassium 3.9 mmol/L (3.5-5.1); Sodium 146 mmol/L (136-145)
[2024-05-29 04:50] LABS: Anion Gap 7 (5-15); Carbon Dioxide 34 mmol/L (20-30)
[2024-05-29 04:51] LABS: Calcium 9.9 mg/dL (8.5-10.1)
[2024-05-29 04:55] LABS: Glucose 94 mg/dL (74-106)
[2024-05-29 04:56] LABS: Blood Urea Nitrogen 32 mg/dL (9-23)
[2024-05-29 05:00] LABS: BUN/Creatinine Ratio 24.6 (10.0-20.0)
[2024-05-29 07:52] LABS: Eosinophils # (auto) 0 10 ^3/uL (0-0.8); Eosinophils % (auto) 0.1 % (0.0-7.0); Hemoglobin 11.8 g/dL (12.2-16.2); Nucleated Red Blood Cells % 0.1 %
[2024-05-29 07:54] LABS: Basophils # (auto) 0.1 10 ^3/uL (0-0.2); Basophils % (auto) 0.7 % (0.0-2.0); Hematocrit 36.7 % (36.0-46.0); Lymphocytes # (auto) 0.7 10 ^3/uL (0.4-5.4); Lymphocytes % (auto) 6.3 % (10.0-50.0); Mean Corpuscular Hemoglobin 27.5 pg (28.0-32.0); Mean Corpuscular Hgb Conc. 32.3 g/dL (32.0-36.0); Mean Corpuscular Volume 85.2 fL (80.0-100.0); Monocytes # (auto) 0.8 10 ^3/uL (0-1.3); Monocytes % (auto) 7.2 % (0.0-12.0); Neutrophils # (auto) 9.2 10 ^3/uL (1.6-8.6); Neutrophils % (auto) 85.7 % (37.0-80.0); Red Cell Distribution Width 19.4 % (11.8-14.3); White Blood Cell 10.7 10^3/uL (4.4-10.8)
[2024-05-29] MEDS ORDERED: DEXTROSE (50%) 50ML SYRG IV PRN (10:15)
[2024-05-29] MEDS: InsuLIN REG 1unit/0.01ml Soln (100units/ml) SC SCH (11:19)
[2024-05-29] MEDS: ACCU-CHEK COMFORT CURVE STRIP VI SCH (11:19)
[2024-05-29] MEDS ORDERED: MORPHINE SULFATE INJ 2 MG/ml SYRG IV PRN (11:45)
[2024-05-29] MEDS ORDERED: TPN PER PHARMACY 0 ML IV SCH (13:00)
[2024-05-29 14:59] LABS: Magnesium 1.8 mg/dL (1.6-2.6)
[2024-05-29 15:01] LABS: Phosphorus 3.8 mg/dL (2.4-5.1)
[2024-05-29] MEDS: AMINO ACID INFUSION IN D10W 1,000 ML IV ONE (19:56)
[2024-05-30] VITALS (65 sets, daily range): BP systolic 87–135; BP diastolic 55–94; PULSE 70–86; RESP 9–98; TEMP 98.1–100; O2SAT 94–100
[2024-05-30 02:26] LABS: Base Excess 6.9 mmol/L (-2.0-2.0)
[2024-05-30 04:39] LABS: Anion Gap 9 (5-15); Carbon Dioxide 34 mmol/L (20-30); Chloride 104 mmol/L (98-107); Potassium 2.8 mmol/L (3.5-5.1); Sodium 147 mmol/L (136-145)
[2024-05-30 04:40] LABS: Calcium 10.3 mg/dL (8.7-10.4)
[2024-05-30 04:45] LABS: BUN/Creatinine Ratio 30.1 (10.0-20.0); Blood Urea Nitrogen 31 mg/dL (9-23); Glucose 148 mg/dL (74-106)
[2024-05-30 04:46] LABS: Magnesium 1.9 mg/dL (1.6-2.6)
[2024-05-30 04:47] LABS: Phosphorus 2.5 mg/dL (2.4-5.1)
[2024-05-30 04:52] LABS: Triglycerides 98 mg/dL (< 150)
[2024-05-30] MEDS: POTASSIUM EFFERVESENT TAB 25 MEQ GT SCH (07:06)
[2024-05-30 07:18] LABS: Basophils # (auto) 0.1 10 ^3/uL (0-0.2); Eosinophils # (auto) 0.1 10 ^3/uL (0-0.8); Monocytes # (auto) 0.5 10 ^3/uL (0-1.3); White Blood Cell 9.5 10^3/uL (4.4-10.8)
[2024-05-30 07:20] LABS: Basophils % (auto) 0.6 % (0.0-2.0); Eosinophils % (auto) 0.7 % (0.0-7.0); Hemoglobin 12.4 g/dL (12.2-16.2); Lymphocytes # (auto) 0.9 10 ^3/uL (0.4-5.4); Lymphocytes % (auto) 9.1 % (10.0-50.0); Mean Corpuscular Hemoglobin 27.2 pg (28.0-32.0); Mean Corpuscular Hgb Conc. 31.7 g/dL (32.0-36.0); Mean Corpuscular Volume 85.7 fL (80.0-100.0); Monocytes % (auto) 5.2 % (0.0-12.0); Neutrophils % (auto) 84.4 % (37.0-80.0); Nucleated Red Blood Cells % 0.1 %; Red Blood Cells 4.55 10^6/uL (4.0-5.20); Red Cell Distribution Width 19.4 % (11.8-14.3)
[2024-05-30] MEDS: POTASSIUM CHL 20MEQ/100ML 100 ML IV SCH (08:11)
[2024-05-30] MEDS: MAGNESIUM SULFATE 1GM/100ML 100 ML IV ONE (10:11)
[2024-05-30] MEDS: ACCU-CHEK COMFORT CURVE STRIP VI SCH (11:27)
[2024-05-30] MEDS: InsuLIN REG 1unit/0.01ml Soln (100units/ml) SC SCH (11:28)
[2024-05-30] MEDS ORDERED: DEXTROSE (50%) 50ML SYRG IV SCH (12:00)
[2024-05-30] MEDS: FUROSEMIDE 20 MG/2 ML VIAL IV SCH (17:22)
[2024-05-30] MEDS ORDERED: AMINO ACID INFUSION IN D10W 1,000 ML IV NR (20:00)
[2024-05-31] VITALS (81 sets, daily range): BP systolic 75–113; BP diastolic 47–91; PULSE 74–95; RESP 9–26; TEMP 97–100; O2SAT 70–100
[2024-05-31 04:17] LABS: Alanine Aminotransferase 46 U/L (7-40); Alkaline Phosphatase 106 U/L (46-116); Anion Gap 5 (5-15); Aspartate Aminotransferase 51 U/L (13-40); BUN/Creatinine Ratio 40.5 (10.0-20.0); Blood Urea Nitrogen 30 mg/dL (9-23); Calcium 10.1 mg/dL (8.7-10.4); Carbon Dioxide 34 mmol/L (20-30); Chloride 107 mmol/L (98-107); Glucose 119 mg/dL (74-106); Magnesium 2.1 mg/dL (1.6-2.6); Potassium 3.1 mmol/L (3.5-5.1); Sodium 146 mmol/L (136-145)
[2024-05-31 04:18] LABS: Albumin 3.5 g/dL (3.2-4.8); Bilirubin, Total 0.8 mg/dL (0.2-1.0); Phosphorus 1.8 mg/dL (2.4-5.1); Total Protein 6.4 g/dL (5.7-8.2)
[2024-05-31] MEDS: POTASSIUM CHL 20MEQ/100ML 100 ML IV SCH (06:16)
[2024-05-31 07:46] LABS: Basophils # (auto) 0 10 ^3/uL (0-0.2); Basophils % (auto) 0.3 % (0.0-2.0); Eosinophils # (auto) 0 10 ^3/uL (0-0.8); Eosinophils % (auto) 0.3 % (0.0-7.0); Hematocrit 38.7 % (36.0-46.0); Hemoglobin 12.1 g/dL (12.2-16.2); Lymphocytes # (auto) 0.7 10 ^3/uL (0.4-5.4); Lymphocytes % (auto) 5.5 % (10.0-50.0); Mean Corpuscular Hemoglobin 27.1 pg (28.0-32.0); Mean Corpuscular Hgb Conc. 31.4 g/dL (32.0-36.0); Mean Corpuscular Volume 86.3 fL (80.0-100.0); Monocytes # (auto) 0.7 10 ^3/uL (0-1.3); Monocytes % (auto) 5.3 % (0.0-12.0); Neutrophils # (auto) 11.7 10 ^3/uL (1.6-8.6); Neutrophils % (auto) 88.6 % (37.0-80.0); Red Blood Cells 4.48 10^6/uL (4.0-5.20); Red Cell Distribution Width 19.1 % (11.8-14.3); White Blood Cell 13.2 10^3/uL (4.4-10.8)
[2024-05-31] MEDS: POTASSIUM PHOSPHATE 44 MEQ in D5W 5% 250 ML IV ONE (13:07)
[2024-05-31] MEDS: TPN PER PHARMACY IV NR (21:10)
[2024-06-01] VITALS (28 sets, daily range): BP systolic 79–120; BP diastolic 48–82; PULSE 74–85; RESP 10–34; TEMP 97.5–99; O2SAT 94–99
[2024-06-01 07:19] LABS: Alanine Aminotransferase 53 U/L (7-40); Albumin 3.5 g/dL (3.2-4.8); Alkaline Phosphatase 101 U/L (46-116); Anion Gap 7 (5-15); Aspartate Aminotransferase 64 U/L (13-40); BUN/Creatinine Ratio 43.7 (10.0-20.0); Blood Urea Nitrogen 31 mg/dL (9-23); Calcium 9.8 mg/dL (8.7-10.4); Carbon Dioxide 29 mmol/L (20-30); Chloride 108 mmol/L (98-107); Glucose 88 mg/dL (74-106); Potassium 3.6 mmol/L (3.5-5.1); Sodium 144 mmol/L (136-145)
[2024-06-01 07:20] LABS: Bilirubin, Total 0.7 mg/dL (0.2-1.0); Phosphorus 2.9 mg/dL (2.4-5.1); Total Protein 6.5 g/dL (5.7-8.2)
[2024-06-01 08:07] LABS: Basophils # (auto) 0 10 ^3/uL (0-0.2); Basophils % (auto) 0.3 % (0.0-2.0); Monocytes # (auto) 0.7 10 ^3/uL (0-1.3); Neutrophils # (auto) 9.1 10 ^3/uL (1.6-8.6)
[2024-06-01 08:08] LABS: Eosinophils # (auto) 0.1 10 ^3/uL (0-0.8); Eosinophils % (auto) 0.7 % (0.0-7.0); Hematocrit 38.1 % (36.0-46.0); Hemoglobin 12.4 g/dL (12.2-16.2); Lymphocytes # (auto) 1.2 10 ^3/uL (0.4-5.4); Lymphocytes % (auto) 10.5 % (10.0-50.0); Mean Corpuscular Hemoglobin 27.9 pg (28.0-32.0); Mean Corpuscular Hgb Conc. 32.6 g/dL (32.0-36.0); Mean Corpuscular Volume 85.5 fL (80.0-100.0); Monocytes % (auto) 5.9 % (0.0-12.0); Neutrophils % (auto) 82.6 % (37.0-80.0); Nucleated Red Blood Cells % 0.1 %; Red Blood Cells 4.46 10^6/uL (4.0-5.20); Red Cell Distribution Width 19.6 % (11.8-14.3)
[2024-06-01] MEDS: TPN PER PHARMACY IV NR (20:39)
[2024-06-02] VITALS (33 sets, daily range): BP systolic 75–110; BP diastolic 40–83; PULSE 75–85; RESP 10–37; TEMP 97.2–99.3; O2SAT 92–100
[2024-06-02 05:45] LABS: Alanine Aminotransferase 129 U/L (7-40); Albumin 3.2 g/dL (3.2-4.8); Alkaline Phosphatase 125 U/L (46-116); Anion Gap 4 (5-15); Aspartate Aminotransferase 155 U/L (13-40); BUN/Creatinine Ratio 46.7 (10.0-20.0); Calcium 8.9 mg/dL (8.7-10.4); Carbon Dioxide 31 mmol/L (20-30); Chloride 107 mmol/L (98-107); Glucose 101 mg/dL (74-106); Magnesium 1.9 mg/dL (1.6-2.6); Potassium 4.4 mmol/L (3.5-5.1); Sodium 142 mmol/L (136-145)
[2024-06-02 05:46] LABS: Bilirubin, Total 0.5 mg/dL (0.2-1.0); Phosphorus 2.6 mg/dL (2.4-5.1); Total Protein 5.8 g/dL (5.7-8.2)
[2024-06-02 05:58] LABS: Blood Urea Nitrogen 43 mg/dL (9-23)
[2024-06-02] MEDS ORDERED: ALBUMIN 25% 100 ML IV ONE (17:00)
[2024-06-02] MEDS: ALBUMIN 25% 100 ML IV ONE ×2 (17:19→18:07)
[2024-06-02] MEDS: BUMETANIDE 1 MG TAB PO SCH (17:19)
[2024-06-02] MEDS: ONDANSETRON HCL 4 MG/2 ML VIAL IV PRN (20:40)
[2024-06-03] VITALS (71 sets, daily range): BP systolic 74–128; BP diastolic 46–87; PULSE 75–83; RESP 11–34; TEMP 97.9–98.5; O2SAT 57–100
[2024-06-03 03:16] LABS: Base Excess 0.1 mmol/L (-2.0-2.0)
[2024-06-03 06:13] LABS: Hemoglobin 10.9 g/dL (12.2-16.2)
[2024-06-03 06:15] LABS: Hematocrit 34.1 % (36.0-46.0); Mean Corpuscular Hemoglobin 27.2 pg (28.0-32.0); Mean Corpuscular Hgb Conc. 31.9 g/dL (32.0-36.0); Red Blood Cells 4.02 10^6/uL (4.0-5.20); Red Cell Distribution Width 19.2 % (11.8-14.3); White Blood Cell 12.3 10^3/uL (4.4-10.8)
[2024-06-03 06:36] LABS: Band Neutrophils % (manual) 0; Basophils % (manual) 0 (0.0-2.0); Blast Cells 0; Eosinophils % (manual) 0 (0-7); Metamyelocytes % 0; Myelocytes % 0; Promyelocytes % 0; Reactive Lymphocytes 0
[2024-06-03 07:28] LABS: Chloride 104 mmol/L (98-107); Sodium 138 mmol/L (136-145)
[2024-06-03 07:30] LABS: Anion Gap 12 (5-15); Carbon Dioxide 22 mmol/L (20-30)
[2024-06-03 07:31] LABS: Calcium 9.7 mg/dL (8.7-10.4)
[2024-06-03 07:35] LABS: Glucose 100 mg/dL (74-106)
[2024-06-03 07:36] LABS: BUN/Creatinine Ratio 35.3 (10.0-20.0); Blood Urea Nitrogen 49 mg/dL (9-23); Magnesium 2.2 mg/dL (1.6-2.6)
[2024-06-03 07:37] LABS: Potassium 6.1 mmol/L (3.5-5.1)
[2024-06-03] MEDS: SODIUM ZIRCONIUM CYCL 10 GM PAK PO ONE (08:15)
[2024-06-03 08:36] LABS: Lymphocytes % (manual) 15 (10.0-50.0); Monocytes % (manual) 6 (0-12)
[2024-06-03 08:37] LABS: Platelet Estimate Increased
[2024-06-03] MEDS: DOPamine 1600MCG/ML D5W 250 ML IV ONE (10:45)
[2024-06-03] MEDS: DOPamine 1600MCG/ML D5W 250 ML IV SCH ×2 (10:59→14:45)
[2024-06-03] MEDS: FUROSEMIDE 20 MG/2 ML VIAL IV ONE (14:24)
[2024-06-04] VITALS (95 sets, daily range): BP systolic 89–167; BP diastolic 50–88; PULSE 75–87; RESP 11–29; TEMP 97.4–98.8; O2SAT 83–100
[2024-06-04 05:57] LABS: Alanine Aminotransferase 109 U/L (7-40); Albumin 3.8 g/dL (3.2-4.8); Alkaline Phosphatase 195 U/L (46-116); Anion Gap 7 (5-15); Aspartate Aminotransferase 81 U/L (13-40); BUN/Creatinine Ratio 37.6 (10.0-20.0); Bilirubin, Total 0.8 mg/dL (0.2-1.0); Blood Urea Nitrogen 44 mg/dL (9-23); Calcium 10.2 mg/dL (8.7-10.4); Carbon Dioxide 29 mmol/L (20-30); Chloride 105 mmol/L (98-107); Glucose 93 mg/dL (74-106); Potassium 4.5 mmol/L (3.5-5.1); Sodium 141 mmol/L (136-145); Total Protein 6.6 g/dL (5.7-8.2)
[2024-06-05] VITALS (47 sets, daily range): BP systolic 90–134; BP diastolic 52–90; PULSE 75–88; RESP 12–29; TEMP 98–99.1; O2SAT 21–100
[2024-06-06 01:00] VITALS: BP 105/70; PULSE 76; RESP 17; TEMP 99.1; O2SAT 96
[2024-06-06 05:00] VITALS: BP 114/78; PULSE 78; RESP 16; TEMP 98.2; O2SAT 98
[2024-06-06 08:00] VITALS: PULSE 70; PULSE 80; RESP 15; O2SAT 96
[2024-06-06 09:00] VITALS: BP 116/53; PULSE 76; RESP 18; TEMP 97.8; O2SAT 91
[2024-06-06 13:00] VITALS: BP 116/57; PULSE 74; RESP 18; TEMP 98; O2SAT 94
[2024-06-06 14:18] VITALS: BP 112/59; PULSE 68; RESP 17; TEMP 98.1; O2SAT 96
== END 2024-06-06 16:00 | disposition hospice, home (50) | DRG 208 ==
LOC: ER 19:15 → TELE 05-15 03:22 → TELE-WESTW 05-15 09:56 → TELE-EAST 05-21 21:30 → ICU WEST 05-24 14:50 → DOU IN ICU 05-31 07:10 → TELE-WESTW 06-05 21:56
PROVIDERS: ADMIT Nurse Practitioner; ATTEND Internal Medicine Cardiovascular Disease
PROC: 02HV33Z Insertion of Infusion Device into Superior Vena Cava, Percutaneous Approach (ICD-10-PCS; principal; 2024-05-24)
PROC: 5A1945Z Respiratory Ventilation, 24-96 Consecutive Hours (ICD-10-PCS; 2024-05-24)
PROC: B548ZZA Ultrasonography of Superior Vena Cava, Guidance (ICD-10-PCS; 2024-05-24)
PROC: 0BH17EZ Insertion of Endotracheal Airway into Trachea, Via Natural or Artificial Opening (ICD-10-PCS; 2024-05-24)
PROC: 5A0945A Assistance with Respiratory Ventilation, 24-96 Consecutive Hours, High Flow/Velocity Cannula (ICD-10-PCS; 2024-05-28)
PROC: 5A0935A Assistance with Respiratory Ventilation, Less than 24 Consecutive Hours, High Flow/Velocity Cannula (ICD-10-PCS; 2024-05-30)
DX: J96.21 Acute and chronic respiratory failure with hypoxia (principal); J15.69 Pneumonia due to other Gram-negative bacteria; I50.23 Acute on chronic systolic (congestive) heart failure; I13.0 Hypertensive heart and chronic kidney disease with heart failure and stage 1 through stage 4 chronic kidney disease, or unspecified chronic kidney disease; E44.1 Mild protein-calorie malnutrition; G93.40 Encephalopathy, unspecified; R64 Cachexia; Z68.1 Body mass index [BMI] 19.9 or less, adult; E87.4 Mixed disorder of acid-base balance; N17.9 Acute kidney failure, unspecified; N18.9 Chronic kidney disease, unspecified; Z51.5 Encounter for palliative care; E11.22 Type 2 diabetes mellitus with diabetic chronic kidney disease; R74.01 Elevation of levels of liver transaminase levels; I25.10 Atherosclerotic heart disease of native coronary artery without angina pectoris; E11.649 Type 2 diabetes mellitus with hypoglycemia without coma; I48.0 Paroxysmal atrial fibrillation; I27.20 Pulmonary hypertension, unspecified; F03.90 Unspecified dementia, unspecified severity, without behavioral disturbance, psychotic disturbance, mood disturbance, and anxiety; Z86.73 Personal history of transient ischemic attack (TIA), and cerebral infarction without residual deficits; Z74.01 Bed confinement status; Z79.899 Other long term (current) drug therapy; Z90.710 Acquired absence of both cervix and uterus; Z79.84 Long term (current) use of oral hypoglycemic drugs; Z79.82 Long term (current) use of aspirin; Z79.02 Long term (current) use of antithrombotics/antiplatelets; Z79.01 Long term (current) use of anticoagulants; Z95.5 Presence of coronary angioplasty implant and graft; Z78.1 Physical restraint status
CPT/HCPCS: 36415; 36600; 71045; 76700; 80048; 80053; 81001; 82805; 82962; 83605; 83735; 83880; 84100; 84478; 84484; 85007; 85014; 85018; 85025; 85027; 87040; 87070; 87081; 87205; 92610; 93005; 93971; 94002; 94003; 94640; 97110; 97116; 97163; 97530; G0378; J1815; J2250; J2405; J2704; J3480; J7060; P9047